=== PATIENT | male | born 1965 | race Two or more races ===

== ENCOUNTER → 2020-01-01 08:40 | Outpatient (BNVA) | payer OTHER, SELFPAY | PROVIDERS: PCP Pediatrics; Visit Provider Internal Medicine | DX: Z76.89 Persons encountering health services in other specified circumstances (principal) ==

== ENCOUNTER 2020-01-01 09:34 | Emergency (ER) | payer OTHER, SELFPAY ==
[2020-01-01 09:43] VITALS: BP 166/96; PULSE 82; RESP 17; TEMP 36.3; O2SAT 96; BMI 41.9
--- NOTE | 2020-01-01 09:54 | ED.LOWEXIN ---
HPI - Extremity Injury (Lower) General Chief Complaint: Extremity Injury, Lower Stated Complaint: rt leg pain Time Seen by Provider: 01/01/20 09:37 Source: patient Mode of arrival: wheelchair Limitations: no limitations History of Present Illness HPI Narrative: 54 y/o male presents with right LE pain after he misstepped down the stairs at work and fell. He missed the bottom stair, hear a large pop and felt excruciating pain after. He is unable to ambulate and report severe pain of his posterior ankle and lower calf. MD complaint: leg injury and ankle injury Injury: Right: ankle Type of Injury: other (unclear - s/p fall ) Place: work Severity: severe Severity scale (1-10): 10 Relieving factors: nothing Exacerbating factors: weight bearing, movement and palpation Context: fall and walking Associated symptoms: snap/pop sensation and unable to bear weight Other symptoms: none Related Data Previous Rx's Medication Instructions Recorded hydrocodone-acetaminophen [[place]] 1 tab PO Q6H PRN #14 tab 01/01/20 ibuprofen 600 mg PO Q8H PRN #30 tab 01/01/20 Allergies Allergy/AdvReac Type Severity Reaction Status Date / Time No Known Allergies Allergy Verified 01/01/20 09:46 Review of Systems Review of Systems: Constitutional: No Fever, No Chills Cardiovascular: No Chest Pain, No SOB, No Orthopnea Respiratory: No Cough, No Sputum, No Wheezing Musculoskeletal: + joint pain, + Myalgias Skin: No Skin Lesions, No rash Neuro: + Weakness, No Numbness, No Dizziness, No Headache Heme/Lymph: No Bruising, No Lymphadenopathy All other 10 point ROS are negative. [facility] Past Medical History Medical History (Updated 01/01/20 @ 10:32 by DORCAS Andrade) Myocardial infarction Social History Social History Advance Directives: No Advance Directives Information Provided: Yes Physical Exam Vital Signs: Vital Signs: Vital Signs Temp Pulse Resp BP Pulse Ox 01/01/20 09:43 97.4 F 82 17 166/96 H 96 Body Mass Index 41.9 Appearance: Alert. Oriented X3. No acute distress. HEENT: normal inspection Neck: Normal inspection. Respiratory: No respiratory distress. Skin: Skin warm and dry. Normal skin color. Normal skin turgor. No rashes. Extremities: RLE with palpable 1cm mass of Achielles tendon. +Byrd test. +weakness to foot plantar flexion and dorsiflexion. 2+ DP pulse. mild calf tenderness. no ecchymosis Neuro: Oriented X 3. No motor deficit. No sensory deficit. Course Course Course Narrative: exam is consistent with Achilles tendonopathy possible rupture, less likely ankle sprain or fracture. doubt DVT. slight plantarflexion is intact likely due to compensatory mechanism. will splint, advise non-weight bearing status and refer to Orthopedics for further evaluation. patient agrees with plan. Discharge Plan Discharge Clinical Impression: Achilles tendon tear Qualifiers: Encounter type: initial encounter Laterality: right Qualified Code(s): S86.011A - Strain of right Achilles tendon, initial encounter Patient Disposition: Home, Self-Care Instructions: Achilles Tendon Rupture (ED) Additional Instructions: Do NOT bear weight on affected leg. Follow up with Orthopedics ESE. Prescriptions: New ibuprofen 600 mg tablet 600 mg PO Q8H PRN (Reason: pain) Qty: 30 RF: 0 hydrocodone-acetaminophen [[place]] 5-325 mg tablet 1 tab PO Q6H PRN (Reason: pain) Qty: 14 RF: 0 Referrals: Mitul De La Garza MD [Physician] - 2 days (for suspected Achilles's tendon tear) Stand Alone Forms: Work/School Release
[2020-01-01] MEDS: oxyCODONE HCl Immed Release 5 MG TABLET PO (09:58)
[2020-01-01] MEDS: Ibuprofen 600 MG TABLET PO (09:59)
== END 2020-01-01 10:43 | disposition home or self-care (01) ==
PROVIDERS: Emergency Provider Emergency Medicine
DX: S86.011A Strain of right Achilles tendon, initial encounter (principal); W10.8XXA Fall (on) (from) other stairs and steps, initial encounter; I10 Essential (primary) hypertension; I25.2 Old myocardial infarction; Y93.9 Activity, unspecified; Y92.9 Unspecified place or not applicable; Y99.0 Civilian activity done for income or pay
CPT/HCPCS: 29515; 99202; 99283

== ENCOUNTER → 2020-01-03 11:13 | Outpatient (BNVA) | payer OTHER, SELFPAY | PROVIDERS: Visit Provider Physician Assistant | DX: S86.011A Strain of right Achilles tendon, initial encounter (principal) | CPT/HCPCS: 99203; 99204 ==

== ENCOUNTER 2020-01-08 07:54 | Day surgery (SDC) | payer OTHER, SELFPAY ==
--- NOTE | 2020-01-07 11:35 | P.CONAN_ITS ---
Documented by User: Ellen Mackay 01/07/20 15:32 HPI - Anesthesia Eval Consult details Narrative: 54yo M for R achilles repair [facility] Past Medical History Medical History Asthma HLD (hyperlipidemia) HTN (hypertension) Myocardial infarction Sleep apnea Surgical History Surgical History Hx of cardiac cath Social History Social History Advance Directives: No Advance Directives Information Provided: Yes Meds Allergies Allergy/AdvReac Type Severity Reaction Status Date / Time No Known Allergies Allergy Verified 01/03/20 11:16 Home Medications Medication Instructions Recorded Confirmed Type aspirin 325 mg tablet 325 mg PO DAILY 01/03/20 History trazodone 100 mg tablet 100 mg PO BEDTIME PRN 01/03/20 History Exam Exam Date and Time: January 07, 2020 1135 Narrative Narrative: Cardiac Cath 12/26/19: Chronic total occlusion of the RCA account for stress test abnormalities. Robust L to R collaterals present. Otherwise no significant CAD. Continue with med tx. Assessment and Plan Assessment Anesthesia Assessment: Chart Reviewed Documented by User: Kev Ramirez MD 01/08/20 09:13 [facility] Past Medical History Medical History Asthma HLD (hyperlipidemia) HTN (hypertension) Myocardial infarction Sleep apnea Surgical History Surgical History Hx of cardiac cath Social History Social History Advance Directives: No Advance Directives Information Provided: Yes Meds Allergies Allergy/AdvReac Type Severity Reaction Status Date / Time No Known Allergies Allergy Verified 01/03/20 11:16 Home Medications Medication Instructions Recorded Confirmed Type aspirin 325 mg tablet 325 mg PO DAILY 01/03/20 History trazodone 100 mg tablet 100 mg PO BEDTIME PRN 01/03/20 History
--- NOTE | 2020-01-08 | ECG_ITS ---
Test Reason : Chest pain Blood Pressure : / mmHG Vent. Rate : 071 BPM Atrial Rate : 071 BPM P-R Int : 182 ms QRS Dur : 102 ms QT Int : 368 ms P-R-T Axes : 045 -21 041 degrees QTc Int : 399 ms Normal sinus rhythm Inferior infarct , age undetermined Nonspecific T wave abnormality Lateral leads Abnormal ECG No previous ECGs available Referred By: Kev Ramirez Electronically Signed By:ANETA SR MD
[2020-01-08 08:58] VITALS: BMI 41.9
[2020-01-08 09:25] VITALS: BP 128/80; PULSE 69; RESP 20; TEMP 36.6; O2SAT 96
[2020-01-08] MEDS: ceFAZolin Sodium/Dextrose,Iso 2 GM/50 ML PIGGYBACK IV (09:27)
[2020-01-08] MEDS: Lactated Ringers 1,000 ML 100 ML IVCONT (09:28)
--- NOTE | 2020-01-08 12:56 | PC.NURSE ---
Surgery cancelled. Pt needs to follow up with cardiologists regarding episodes of chest pain
== END 2020-01-08 23:59 ==
PROVIDERS: Visit Provider Orthopaedic Surgery
DX: S86.011A Strain of right Achilles tendon, initial encounter (principal); Z53.09 Procedure and treatment not carried out because of other contraindication; W10.8XXA Fall (on) (from) other stairs and steps, initial encounter; Y93.01 Activity, walking, marching and hiking; Y92.69 Other specified industrial and construction area as the place of occurrence of the external cause; Y99.8 Other external cause status; I25.2 Old myocardial infarction; I10 Essential (primary) hypertension
CPT/HCPCS: 93005; J0690; J2250; J2405; J3010

== ENCOUNTER 2020-01-16 08:43 | Day surgery (SDC) | payer OTHER, SELFPAY ==
--- NOTE | 2020-01-15 12:49 | P.CONAN_ITS ---
Documented by User: Ellen Micheleney 01/15/20 13:00 HPI - Anesthesia Eval Consult details Narrative: 54yo M for R achilles tendon repair Cardiac cleared (Cx'd previously d/t active CP in preop. Sent for Cardiac clearance.) [facility] Past Medical History Medical History Asthma HLD (hyperlipidemia) HTN (hypertension) Myocardial infarction Sleep apnea Surgical History Surgical History Hx of cardiac cath Social History Social History Smoking Status: Former smoker Use of substances other than those prescribed or required for medical reasons: Yes Substance Use Type Other:: CBD DROPS 01/13/2020 LAST DOSE Advance Directives: No Meds Allergies Allergy/AdvReac Type Severity Reaction Status Date / Time No Known Allergies Allergy Verified 01/03/20 11:16 Home Medications Medication Instructions Recorded Confirmed Type aspirin 325 mg tablet 325 mg PO DAILY 01/03/20 History trazodone 100 mg tablet 100 mg PO BEDTIME PRN 01/03/20 History Asmanex HFA 01/15/20 History atorvastatin 1 tab PO DAILY 01/15/20 01/15/20 History isosorbide mononitrate 30 mg PO DAILY 01/15/20 01/15/20 History montelukast 1 tab PO DAILY 01/15/20 01/15/20 History omeprazole 1 tab PO DAILY PRN 01/15/20 01/15/20 History Exam Exam Date and Time: January 15, 2020 1249 Narrative Narrative: Cardiac Cath 12/26/19: Chronic total occlusion of the RCA account for stress test abnormalities. Robust L to R collaterals present. Otherwise no significant CAD. Continue with med tx. EKG 01/08/20: Normal sinus rhythm. Inferior infarct , age undetermined. Nonspecific T wave abnormality Lateral leads Documented by User: Kev Ramirez MD 01/16/20 12:42 [facility] Past Medical History Medical History Asthma HLD (hyperlipidemia) HTN (hypertension) Myocardial infarction Sleep apnea Surgical History Surgical History Hx of cardiac cath Social History Social History Smoking Status: Former smoker Use of substances other than those prescribed or required for medical reasons: Yes Substance Use Type Other:: CBD DROPS 01/13/2020 LAST DOSE Advance Directives: No Meds Allergies Allergy/AdvReac Type Severity Reaction Status Date / Time No Known Allergies Allergy Verified 01/03/20 11:16 Home Medications Medication Instructions Recorded Confirmed Type aspirin 325 mg tablet 325 mg PO DAILY 01/03/20 History trazodone 100 mg tablet 100 mg PO BEDTIME PRN 01/03/20 History Asmanex HFA 01/15/20 History atorvastatin 1 tab PO DAILY 01/15/20 01/15/20 History isosorbide mononitrate 30 mg PO DAILY 01/15/20 01/15/20 History montelukast 1 tab PO DAILY 01/15/20 01/15/20 History omeprazole 1 tab PO DAILY PRN 01/15/20 01/15/20 History Exam Airway Mallampati Class: III TM Dist: >3cm Neck ROM: Full Loose/Missing/Broken Teeth: No Heart: rrrr Lungs: nl Other: ao Assessment and Plan Assessment Anesthesia Assessment: Anesthesia Plan Discussed and Chart Reviewed Final Anesthetic Review NPO: Yes ASA Class: III Final Preanesthetic Review: No Changes in Pt Med Stat, Meds/Allgs Chart Reviewed and Consent Obtained/Reviewed Patient Risk: Intermediate Procedure Risk: Intermediate Anesthetic Plan Anesthetic Plan: GA and Regional Block Disposition: Standard PACU
[2020-01-16] VITALS (9 sets, daily range): BP systolic 128–165; BP diastolic 66–131; PULSE 64–75; RESP 16–20; TEMP 36.1–36.4; O2SAT 97–100; BMI 41.9
[2020-01-16] MEDS: Lactated Ringers 1,000 ML 100 ML IVCONT (10:13)
[2020-01-16] MEDS: Albuterol Sulfate (0.083%) 2.5 MG/3 ML VIAL.NEB INHALE (10:49)
--- NOTE | 2020-01-16 11:55 | MHC.SHP ---
Pre-Procedural Eval Section A The patient is an INPATIENT: No Changes since office visit: Yes Patient answered all questions; No Cold of Flu in the past 2 weeks, No New Medical Problems and No Changes in Medication The History & Physical has been completed within 30 days and I have reviewed it.: Yes Section B Chief Complaint: Achilles Rupture Allergies: Allergies Allergy/AdvReac Type Severity Reaction Status Date / Time No Known Allergies Allergy Verified 01/03/20 11:16 Plan Patient has been examined and remains a candidate for the planned procedure
[2020-01-16] MEDS: ceFAZolin Sodium/Dextrose,Iso 2 GM/50 ML PIGGYBACK IV (12:01)
--- NOTE | 2020-01-16 12:49 | FL_ITS ---
EXAMINATION: Intraoperative fluoroscopy CLINICAL INFORMATION: Right Achilles repair COMPARISON: None. TECHNIQUE: Intraoperative fluoroscopy was provided for use by Dr. De La Garza. A total of 1 image was saved to PACS. A radiologist was not present during imaging. Today's dictation is only for administrative purposes to document intraoperative fluoroscopic usage. TOTAL FLUOROSCOPIC TIME: 7.1 seconds FL/FL guidance in OR FINDINGS~\^^ Intraoperative fluoroscopy provided for use by Dr. De La Garza. Please see operative note for detailed findings.
--- NOTE | 2020-01-16 13:46 | PM.OP ---
Brief Operative Note Date of procedure: 01/16/20 Pre-op diagnosis: right achilles avulsion Post-op diagnosis: same Procedure: right achilles tendon repair Implants: marlo collagen patch and 4.5 suture anchor Surgeon: Mitul De La Garza MD Anesthesia: GETA Estimated blood loss (mL): 0 IV fluids (mL): 1,000 Pathology: none sent Condition: stable Disposition: PACU
--- NOTE | 2020-01-18 | OP_ITS ---
SURGEON: Mitul De La Garza MD INDICATIONS: This is a 54-year-old gentleman, who sustained an injury to his Achilles tendon on 01/01/2020. We tried to fix this sooner, but he had delayed because of cardiac reasons and finally he was cleared to undergo surgery and he was taken to the operating room to undergo Achilles tendon repair. PREOPERATIVE DIAGNOSIS: Right Achilles avulsion. POSTOPERATIVE DIAGNOSIS: Right Achilles avulsion. PROCEDURE PERFORMED: Right Achilles tendon repair. ESTIMATED BLOOD LOSS: None. COMPLICATIONS: None. ANESTHESIA: General endotracheal and local. ASSISTANTS: None. SPECIMENS: IMPLANTS: [place] collagen patch 20 x 22 mm and a 4.5 suture anchor double loaded. FLUIDS: 1 L. PROCEDURE IN DETAIL: The patient was brought to the operating room, placed in the prone position. All bony prominences were well padded and he was prepped and draped in standard sterile fashion. Time-out was called to identify proper site, proper procedure, proper surgeon. IV antibiotics per weight were administered. I began by making an incision approximately 8 cm long over the posterior aspect of the Achilles. This was medial to the Achilles. Sharp dissection was taken down through the skin and then Littler scissors were used to dissect down to the Achilles tendon. This was hematogenous and there was a bony avulsion piece that had retracted proximal. I was able to clear out this piece and identify the donor location at the tip of the calcaneus. This was over 2-week-old and so it was difficult to reapproximate 100% because it was extremely tight. Not only did he have an avulsion, but he had a high-grade partial tear at the tendinous area approximately 4 cm proximal to the bony insertion site, so I not could release anymore to stretch it out. So, I placed a 4.5 suture anchor into the calcaneus. This was attached to suture tape as well as a suture. I then drilled small holes through the bony avulsion fragment and placed each of these over into the fragment and then tied over the fragment in a horizontal mattress configuration. This was done while he was terminally plantar flexed and I was able to get the bony avulsion fragment within millimeters of its donor site. I then used a FiberWire to repair the high-grade partial tear more proximal and then placed a collagen patch over this site and approximated that with 3-0 Vicryl. I was happy with the repair. I then removed all instrumentation, irrigated copiously and closed with absorbable suture and skin glue and then astrid. The patient was placed in sterile dressing and splinted in terminal equinus. He was then extubated, brought to recovery room in stable condition. There were no known complications. Because this is 2 weeks out from avulsion, this was a difficult repair and I think we need to keep him in equinus for 2 weeks and slowly bring him to neutral over the next 6 weeks. MD GABI Zuniga/NICOLE / [id number]
== END 2020-01-16 15:55 | disposition home or self-care (01) ==
PROVIDERS: Visit Provider Orthopaedic Surgery
PROC: (CPT 27650; principal; 2020-01-16 10:50)
DX: S86.011A Strain of right Achilles tendon, initial encounter (principal); W10.8XXA Fall (on) (from) other stairs and steps, initial encounter; Y93.01 Activity, walking, marching and hiking; Y92.69 Other specified industrial and construction area as the place of occurrence of the external cause; Y99.8 Other external cause status; I25.10 Atherosclerotic heart disease of native coronary artery without angina pectoris; I10 Essential (primary) hypertension; I25.2 Old myocardial infarction; G47.30 Sleep apnea, unspecified; J45.909 Unspecified asthma, uncomplicated; E78.5 Hyperlipidemia, unspecified; Z87.891 Personal history of nicotine dependence; Z79.82 Long term (current) use of aspirin; Z79.899 Other long term (current) drug therapy
CPT/HCPCS: 27650; C1713; J0690; J1100; J2250; J2370; J3010

== ENCOUNTER → 2020-02-01 09:10 | Outpatient (BNVA) | payer OTHER, SELFPAY | PROVIDERS: Visit Provider Physician Assistant | DX: Z47.89 Encounter for other orthopedic aftercare (principal); Z48.02 Encounter for removal of sutures | CPT/HCPCS: 99212 ==

== ENCOUNTER → 2020-02-12 08:57 | Outpatient (BNVA) | payer OTHER, SELFPAY | PROVIDERS: Visit Provider Physician Assistant | DX: Z47.89 Encounter for other orthopedic aftercare (principal) | CPT/HCPCS: 99212 ==

== ENCOUNTER → 2020-02-28 10:35 | Outpatient (BNVA) | payer OTHER, SELFPAY | PROVIDERS: Visit Provider Orthopaedic Surgery | DX: Z47.89 Encounter for other orthopedic aftercare (principal); Z87.891 Personal history of nicotine dependence; Z98.890 Other specified postprocedural states | CPT/HCPCS: 99212 ==

== ENCOUNTER 2020-03-27 12:18 | Outpatient (REF) | payer OTHER, SELFPAY ==
[2020-03-27 14:21] LABS: Prothrombin Time 11.6 SEC (10.8-13.0)
[2020-03-27 14:23] LABS: MANUAL DIFF FLAG NO
[2020-03-27 14:33] LABS: Basophils Absolute Auto 0.1 X10*3/uL (0.0-0.2); Basophils Percent Auto 0.5 % (0-2); Eosinophils Absolute Auto 0.4 X10*3/uL (0.0-0.4); Eosinophils Percent Auto 4.1 % (0-4); Hematocrit 46.6 % (42-52); Hemoglobin 14.8 g/dl (14.0-18.0); Imm Gran Abs Auto 0.07 X10*3/uL (0.00-0.03); Imm Gran Pct Auto 0.7 % (0.0-0.4); Lymphocytes Absolute Auto 3.2 X10*3/uL (1.2-4.9); Lymphocytes Percent Auto 31.4 % (20-40); Mean Corpuscular HGB Conc 31.8 g/dl (31.0-36.0); Mean Corpuscular Hemoglobin 28.1 pg (27.0-33.0); Mean Corpuscular Volume 88.6 fL (80-98); Mean Platelet Volume 10.4 fL (9.4-12.4); Monocytes Absolute Auto 0.7 X10*3/uL (0.1-1.2); Monocytes Percent Auto 6.9 % (2-11); Neutrophils Absolute Auto 5.8 X10*3/uL (2.0-8.3); Neutrophils Percent Auto 56.4 % (45-73); Platelet Count 242 X10*3/uL (160-400); Red Blood Count 5.26 X10*6/uL (4.60-5.80); Red Cell Distribution Width 12.8 % (11.0-16.0); White Blood Count 10.2 X10*3/uL (4.8-10.8)
[2020-03-27 14:47] LABS: Alanine Aminotransferase 55 U/L (0-40); Albumin Level 4.2 g/dL (3.5-5.0); Alkaline Phosphatase 87 U/L (39-117); Aspartate Amino Transferase 35 U/L (5-37); Bilirubin Direct 0.4 mg/dL (0.0-0.5); Bilirubin Total 0.9 mg/dL (0.0-1.0); Total Protein 7.3 g/dL (6.5-8.0)
[2020-03-31 12:51] LABS: Alpha Fetoprotein 2.2 ng/mL (<6.1)
[2020-05-21 12:03] LABS: HCV Log PCR <1.18 NOT DETECTED; HepC Viral Load <15 NOT DETECTED
== END 2020-03-27 12:19 | disposition home or self-care (01) ==
LOC: HO.10HDL 12:18
PROVIDERS: Visit Provider Internal Medicine
DX: Z86.19 Personal history of other infectious and parasitic diseases (principal)
CPT/HCPCS: 36415; 80076; 82105; 85025; 85610; 87522

== ENCOUNTER 2020-04-02 10:00 | Outpatient (RCR) | payer OTHER, SELFPAY ==
--- NOTE | 2020-03-27 10:12 | MHC.PT.EP ---
[facility] [place] Office [place] Office [place] Office [address] Margaret Pan [address] [phone] F: [phone] F: [phone] F: [phone] F: [phone] Physical Therapy Plan of Care Date of Evaluation: 03/27/20 Date of Surgery: 01/16/20 Diagnosis: R Achilles tendon repair performed on 01/16/2020 Assessment: pt presents w/ Achilles tendon repair post-op status. 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 pt presents to physical therapy with pain, decreased range of motion, decreased strength, impaired functional mobility, impaired postural awareness, and gait deviations. pt is a good candidate for skilled PT due to age, potential remediation of impairments, typical disease/condition progression and prognosis, comorbidities, and motivation. pt would benefit from tailored strengthening and stretching exercise program, functional training, gait training, postural re-training, neuromuscular re-education, modalities as needed for pain, equipment safety demonstration. Frequency and Duration: The patient will be seen 2x/wk for 12 weeks Short Term Goals: pt will be I w/ HEP to promote self-managment of condition. pt will improve R ankle DF to neutral to remediate gait impairments on even ground w/ LRAD. pt will participate in 6MWT to determine cardiovascular and muscular endurance. 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 pt will ascend/descend 12 stairs w/ reciprocal pattern w/ LRAD. pt will report <1/10 R ankle pain w/ >2500' ambulation on even ground w/ LRAD to facilitate return to work. Treatment Plan: Modalities to reduce pain, spasms and effusion. Manual therapy to restore motion and function. Therapeutic exercise to improve strength and flexibility. Neuromuscular re-education for posture and balance. Therapeutic activities to return to functional activities of daily living. Electronically signed by: Laurence Franco PT, DPT Please sign and return to therapist. Thank you for your referral.
--- NOTE | 2020-04-04 09:54 | MHC.PT.DC ---
[facility] [place] Office [place] Office [place] Office [address] Margaret Pan [address] [facility] [phone] F: [phone] F: [phone] F: [phone] F: [phone] Physical Therapy Discharge Report Diagnosis: R Achilles tendon repair performed on 01/16/2020 Date of Surgery: 01/16/20 Date of Evaluation: 03/27/20 Date of Discharge: 04/04/20 Treatments to Date: 2 Cancellations to Date: 0 No Shows to Date: 0 Discharge Status: Patient Elected to Stop Discharge Summary: The patient called our office this morning to tell us his worker's compensation case requested he go to physical therapy at a different location. He is discharged from this physical therapy plan of care. Electronically signed by: Laurence Franco PT, DPT Please sign and return to therapist. Thank you for your referral.
== END 2020-04-04 09:55 | disposition other institution (70) ==
LOC: HO.PT 10:00
PROVIDERS: PCP Pediatrics; Visit Provider Orthopaedic Surgery
DX: Z98.890 Other specified postprocedural states (principal)
CPT/HCPCS: 97110; 97161

== ENCOUNTER → 2020-04-03 09:36 | Outpatient (BNVA) | payer OTHER, SELFPAY | PROVIDERS: PCP Pediatrics; Visit Provider Orthopaedic Surgery | DX: Z98.890 Other specified postprocedural states (principal) | CPT/HCPCS: 99212 ==

== ENCOUNTER 2020-04-08 08:40 | Outpatient (REF) | payer OTHER, SELFPAY ==
--- NOTE | 2020-04-08 | US_ITS ---
EXAMINATION: US ABDOMEN COMPLETE CLINICAL INFORMATION: Hepatitis C history. GERD. COMPARISON: Ultrasound abdomen 01/29/2013. TECHNIQUE: Real-time imaging of the abdominal viscera. FINDINGS: PANCREAS: Head and body of the pancreas are homogeneous in echotexture. The tail is obscured by overlying gas. ABDOMINAL AORTA: The proximal, mid, and distal segments are normal in caliber. INFERIOR VENA CAVA: Visualized portions are normal. LIVER: The liver is normal size and contour. There is increased echogenicity seen. There are areas of focal fatty sparing. There are small anechoic cyst right hepatic lobe measuring 0.9 x 0.9 x 1.0 cm. No additional focal hepatic lesion. There is no intrahepatic biliary duct dilatation seen. GALLBLADDER: There are multiple echogenic gallstones without wall thickening. No pericholecystic fluid collection. COMMON BILE DUCT: Normal in caliber measuring 0.5 cm in diameter. RIGHT KIDNEY: Normal. No hydronephrosis. No renal calculi or focal parenchymal lesions. The kidney measures 11.7 cm in maximum dimension. LEFT KIDNEY: There is an echogenic stone lower pole measuring 0.3 x 0.3 cm. No additional cyst stones seen. No hydronephrosis. No renal calculi or focal parenchymal lesions. The kidney measures 11.0 cm in maximum dimension. SPLEEN: Normal. The spleen measures 11.3 cm in maximum dimension. FREE FLUID: None. US/US abdomen complete IMPRESSION: Diffuse echogenic liver consistent with hepatic steatosis. There is focal fatty sparing and a small right hepatic lobe cyst. The cyst is stable to previous exam from 2013. Gallstones without wall thickening. Gallstones are new since 2013 ultrasound exam. Small nonobstructive echogenic stone lower pole left kidney. The cyst is new since the previous exam 2012.
== END 2020-04-08 08:41 | disposition home or self-care (01) ==
LOC: HO.US 08:40
PROVIDERS: Visit Provider Internal Medicine
DX: B17.10 Acute hepatitis C without hepatic coma (principal)
CPT/HCPCS: 76700

== ENCOUNTER 2020-04-11 10:19 | Day surgery (SDC) | payer OTHER, SELFPAY ==
[2020-04-07 12:03] VITALS: BMI 39.7
--- NOTE | 2020-04-08 13:31 | P.CONAN_ITS ---
Documented by User: Ellen Mackay 04/08/20 13:38 HPI - Anesthesia Eval Consult details Narrative: 54yo M for Upper Endoscopy s/p achilles repair 12/2019. Pt obtained cardiac clearance preop tendon surgery. [facility] Past Medical History Medical History Asthma CAD (coronary artery disease) GERD (gastroesophageal reflux disease) Hepatitis Hiatal hernia History of torsion of testis HLD (hyperlipidemia) HTN (hypertension) Myocardial infarction Sleep apnea Family History Family History Father No problems noted. Mother No problems noted. 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 Meds Allergies Allergy/AdvReac Type Severity Reaction Status Date / Time No Known Allergies Allergy Verified 04/03/20 09:41 Home Medications Medication Instructions Recorded Confirmed Type aspirin 325 mg tablet 325 mg PO DAILY 01/03/20 History trazodone 100 mg tablet 100 mg PO BEDTIME PRN 01/03/20 04/07/20 History Asmanex HFA 01/15/20 History atorvastatin 1 tab PO DAILY 01/15/20 04/07/20 History isosorbide mononitrate 30 mg PO DAILY 01/15/20 04/07/20 History montelukast 1 tab PO DAILY 01/15/20 04/07/20 History omeprazole 1 tab PO DAILY PRN 01/15/20 04/07/20 History albuterol sulfate 2 puff INHALATION Q6H PRN 04/07/20 04/07/20 History atenolol 0.5 tab PO DAILY 04/07/20 04/07/20 History buspirone 1 tab PO BID 04/07/20 04/07/20 History cetirizine 1 tab PO DAILY 04/07/20 04/07/20 History clonazepam 0.5 tab PO DAILY 04/07/20 04/07/20 History fluticasone propionate [Flovent 1 puff PO BID 04/07/20 04/07/20 History Diskus] Exam Exam Date and Time: April 08, 2020 1331 Height,Weight and Vital Signs: Height 5 ft 6.5 in Weight 113.398 kg Pertinent Lab Results Pertinent Lab Results: Laboratory Tests 03/27/20 12:18 WBC 10.2 Hgb 14.8 Hct 46.6 Plt Count 242 BMP 12/2019 WNL per cardiac note Narrative Narrative: EKG 01/08/2020 NSR Inferior infarct, age undetermined Nonspecific T wave abn, lateral leads Assessment and Plan Assessment Anesthesia Assessment: Chart Reviewed Documented by User: Michelle Lee 04/11/20 11:36 PMFSH Past Medical History Medical History Asthma CAD (coronary artery disease) GERD (gastroesophageal reflux disease) Hepatitis Hiatal hernia History of torsion of testis HLD (hyperlipidemia) HTN (hypertension) Myocardial infarction Sleep apnea Family History Family History Father No problems noted. Mother No problems noted. 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 Meds Allergies Allergy/AdvReac Type Severity Reaction Status Date / Time No Known Allergies Allergy Verified 04/03/20 09:41 Home Medications Medication Instructions Recorded Confirmed Type aspirin 325 mg tablet 325 mg PO DAILY 01/03/20 History trazodone 100 mg tablet 100 mg PO BEDTIME PRN 01/03/20 04/07/20 History Asmanex HFA 01/15/20 History atorvastatin 1 tab PO DAILY 01/15/20 04/07/20 History isosorbide mononitrate 30 mg PO DAILY 01/15/20 04/07/20 History montelukast 1 tab PO DAILY 01/15/20 04/07/20 History omeprazole 1 tab PO DAILY PRN 01/15/20 04/07/20 History albuterol sulfate 2 puff INHALATION Q6H PRN 04/07/20 04/07/20 History atenolol 0.5 tab PO DAILY 04/07/20 04/07/20 History buspirone 1 tab PO BID 04/07/20 04/07/20 History cetirizine 1 tab PO DAILY 04/07/20 04/07/20 History clonazepam 0.5 tab PO DAILY 04/07/20 04/07/20 History fluticasone propionate [Flovent 1 puff PO BID 04/07/20 04/07/20 History Diskus] Exam Height,Weight and Vital Signs: Vital Signs Temp Pulse Resp BP Pulse Ox 04/11/20 10:47 97.7 F 75 18 136/99 H 97 Airway Mallampati Class: III TM Dist: >3cm Neck ROM: Full (Short neck) Heart: RRR Lungs: CTAB Assessment and Plan Assessment Anesthesia Assessment: Anesthesia Plan Discussed and Chart Reviewed Final Anesthetic Review NPO: Yes ASA Class: III Final Preanesthetic Review: No Changes in Pt Med Stat, Meds/Allgs Chart Rev iewed, Consent Obtained/Reviewed and Anes Risks/Benef Reviewed Patient Risk: Intermediate Procedure Risk: Low Assessment/Block/Sedation in SS: Assess/Block/Sedation-SS Anesthetic Plan Anesthetic Plan: MAC: Disposition: Standard PACU
[2020-04-11 10:47] VITALS: BP 136/99; PULSE 75; RESP 18; TEMP 36.5; O2SAT 97
[2020-04-11] MEDS: Lactated Ringers 1,000 ML 100 ML IVCONT (11:10)
[2020-04-11 11:58] VITALS: BP 101/49; PULSE 76; RESP 20; TEMP 36.4; O2SAT 99
--- NOTE | 2020-04-11 12:03 | PM.OP ---
Brief Operative Note Date of Service: 04/11/20 Pre-op diagnosis: GERD, Abdominal pain LUQ Post-op diagnosis: other (Erosive gastritis, Hiatal hernia, GERD) Procedure: EGD with biopsies Surgeon: Roberto Escalante Anesthesia: MAC Estimated blood loss (mL): 3.0 Pathology: other (A. Gastric antrum B. EG Junction at 35cm) Condition: stable Disposition: PACU
[2020-04-11 12:13] VITALS: BP 128/81; PULSE 75; RESP 20; TEMP 36.4
--- NOTE | 2020-04-11 12:28 | OP_ITS ---
SURGEON: Roberto Escalante MD INDICATIONS: The patient presents for evaluation of abdominal pain and reflux. Full consent has been obtained from him for this, including risks of bleeding and perforation. PREOPERATIVE DIAGNOSIS: Abdominal pain and reflux. POSTOPERATIVE DIAGNOSIS: Abdominal pain and reflux, erosive gastritis, hiatal hernia, gastroesophageal reflux. PROCEDURE PERFORMED: Esophagogastroduodenoscopy with biopsies. ESTIMATED BLOOD LOSS: COMPLICATIONS: ANESTHESIA: Monitored anesthesia care. ASSISTANTS: SPECIMENS: DESCRIPTION OF PROCEDURE: The patient was placed in the left lateral decubitus position. The Olympus video gastroscope was passed in the posterior oropharynx and upper esophagus under direct vision. The scope was passed slowly to the distal esophagus. The gastroesophageal junction appeared at 35 cm. There was some slight irregularity but no evidence of esophagitis nor any definitive evidence of Mayo's mucosa. There were no varices. The scope was entered into the stomach. There was a small hiatal hernia. The hiatal hernia mucosa appeared normal. The scope was advanced to the pylorus and duodenum was cannulated to the descending portion. The duodenum including the bulb was carefully inspected. There was some mild duodenitis in the duodenal bulb, but no erosions or ulceration. The scope was withdrawn back into the stomach. The gastric antrum had changes consistent with erosive gastritis with scattered erosions, erythema, and edema. There was some friability. There was no ulceration or mass. There was good peristalsis. The scope was retroflexed visualizing the proximal stomach carefully, which appeared normal, without any sign of mass or ulceration. The scope was straightened. Biopsies were obtained from the gastric antrum. The scope was withdrawn back into the esophagus. Biopsies were obtained at the EG junction at 35 cm. Proximal to this, the esophageal mucosa appeared normal. The scope was withdrawn from the patient. He tolerated the procedure well and he was returned to the recovery area in stable condition. IMPRESSION: 1. Erosive gastritis. 2. Hiatal hernia. 3. Gastroesophageal reflux. PLAN: The results of biopsies will be checked. If Helicobacter pylori is present in the gastric biopsies, I would recommend treating that given these findings. He was given a prescription to start omeprazole 20 mg daily. He was advised to resume his aspirin today in regard to the underlying coronary artery disease, but was advised to avoid NSAIDs. He was advised to see me again in several months for a followup visit as well. Of note, we did review the recent finding of his gallstones on his abdominal ultrasound. However, he is asymptomatic in that regard at this point and I would simply observe those. However, if they begin causing symptoms, he would then need to see a surgeon. Other laboratories, including a hepatitis C viral load, were negative. This has been discussed with his . MD TEDDY Hernandez/NICOLE / [id number] [email or web address]
== END 2020-04-11 13:03 | disposition home or self-care (01) ==
PROVIDERS: Visit Provider Internal Medicine
PROC: 0DJ08ZZ Inspection of Upper Intestinal Tract, Via Natural or Artificial Opening Endoscopic (ICD-10-PCS; CPT 43235; principal; 2020-04-11 11:50)
DX: K21.9 Gastro-esophageal reflux disease without esophagitis (principal); K29.60 Other gastritis without bleeding; K44.9 Diaphragmatic hernia without obstruction or gangrene; K80.80 Other cholelithiasis without obstruction; I10 Essential (primary) hypertension; J45.909 Unspecified asthma, uncomplicated; Z86.19 Personal history of other infectious and parasitic diseases; Z87.891 Personal history of nicotine dependence; Z79.51 Long term (current) use of inhaled steroids; Z79.899 Other long term (current) drug therapy
CPT/HCPCS: 43239; 88305; 88342

== ENCOUNTER 2021-08-26 04:45 | Emergency (ER) | payer OTHER, SELFPAY ==
[2021-08-26 06:50] LABS: Appearance Urine CLEAR; Color Urine YELLOW; Glucose Urine UA NEG (NEG); Leukocyte Esterase Urine NEG (NEG); Nitrite Urine NEG (NEG); Urine Blood NEG (NEG); Urine Ketones NEG (NEG); Urine Protein NEG (NEG-TRACE)
[2021-08-26 10:30] LABS: Glucose, Whole Blood 129 mg/dL (60-115)
== END 2021-08-26 07:00 | disposition home or self-care (01) ==
PROVIDERS: Emergency Provider Emergency Medicine
DX: R09.82 Postnasal drip (principal); R35.0 Frequency of micturition; E11.9 Type 2 diabetes mellitus without complications
CPT/HCPCS: 81003; 82947; 99283

== ENCOUNTER 2022-05-19 04:58 | Emergency (ER) | payer OTHER, SELFPAY ==
--- NOTE | ~2022-05-19 | CT_ITS ---
EXAMINATION: CT ORBIT WITH CONTRAST CLINICAL INFORMATION: CT orbits. Periorbital pain and pressure. Question mass. COMPARISON: CT sinuses 12/20/2019. TECHNIQUE: Proposal Director images were obtained. CT imaging of the orbits was performed after the intravenous administration of 85 mL Omnipaque 350. Development was reformatted into multiplanar images at the acquisition workstation. This CT examination was performed using dose optimization techniques as appropriate, variously including the following: *Automated exposure control *Adjustment of mA and/or kV according to patient size (this includes techniques or standardized protocols for targeted exams where dose is matched to indication/reason for exam; i.e. extremities or head) *Use of iterative reconstruction technique DLP: 171 mGy-cm FINDINGS: Globes and extraocular muscles are symmetric. No abnormal retrobulbar mass or enhancement. Lamina papyracea and orbital floors are intact. Orbital apices are unremarkable. There is moderate circumferential mucosal thickening within the maxillary sinuses. The left primary maxillary sinus ostium is occluded. The right is patent. There is moderate mucosal thickening within the frontal sinuses. Both of the frontal recesses are occluded. There is moderate mucosal thickening within the ethmoid air cells and the sphenoid sinus. Both of the sphenoid sinus ostia are occluded. The nasal septum deviates to the left and there is a prominent leftward projecting nasal septal spur that contacts the medial surface of the left inferior nasal turbinate. Limited visualization of the intracranial anatomy reveals no abnormal finding. Specifically no midline shift or hydrocephalus. Mastoid air cells and middle ear cavities are well-aerated. Temporomandibular joints are grossly symmetric. CT/CT orbit BI w IV con IMPRESSION: There is moderate paranasal sinus disease. Nearly all of the major paranasal sinus drainage pathways are occluded. The nasal septum deviates to the left and there is a prominent leftward projecting nasal septal spur that contacts the medial surface of the left inferior nasal turbinate. Otherwise unremarkable examination of the orbits in that there is no abnormal retrobulbar mass or enhancement.
--- NOTE | ~2022-05-19 | XR_ITS ---
EXAMINATION: XR CHEST CLINICAL INFORMATION: Dyspnea. COMPARISON: None TECHNIQUE: 2 views of the chest were obtained. FINDINGS: No significant abnormality is noted involving the heart, lungs, mediastinum, bony thorax or soft tissues. XR/XR chest 2V IMPRESSION: No acute cardiopulmonary process.
[2022-05-19 05:25] VITALS: BP 171/95; PULSE 89; RESP 16; TEMP 36.4; O2SAT 97; BMI 40.2
[2022-05-19 07:00] VITALS: BP 150/90; PULSE 92; RESP 20; TEMP 36.4; O2SAT 98
[2022-05-19 07:39] VITALS: BP 155/81; PULSE 74; RESP 18; TEMP 36.6; O2SAT 97
--- NOTE | 2022-05-19 09:12 | ECG_ITS ---
Test Reason : TACHYCARDIA Blood Pressure : / mmHG Vent. Rate : 074 BPM Atrial Rate : 074 BPM P-R Int : 174 ms QRS Dur : 100 ms QT Int : 398 ms P-R-T Axes : 038 -27 055 degrees QTc Int : 441 ms Normal sinus rhythm Minimal voltage criteria for LVH, may be normal variant ( R in aVL ) Inferior infarct (cited on or before 08-JAN-2020) Abnormal ECG When compared with ECG of 08-JAN-2020 09:34, No significant change was found Referred By: Dae Yoon Electronically Signed By:MAICO EDWARDS MD
--- NOTE | 2022-05-19 09:18 | ED_ITS ---
HPI - General Adult General Chief complaint: General Medical Stated complaint: Sob Time Seen by Provider: 05/19/22 08:33 Source: patient and old records reviewed History of Present Illness HPI narrative: Patient complaining of pressure-like sensation in his head medial to his right eye. He states has been there for a few years and is getting worse. He saw [facility] Thro[facility] for similar symptoms 2 years ago but visit was nondiagnostic. He states they looked up his nose but he has never had imaging as far as he knows. He also has a history of coronary artery disease with a cardiac catheterization 2 years ago without stent placement. He states when he lays down at night he feels the symptoms more. He then gets very tachycardic and feels palpitations. He complains of occasional vision changes which she describes is seeing flashes of light when his symptoms are bad. They are much worse when he lays down at night. He underwent sleep studies a year ago but apparently nondiagnostic. No recent fevers or chills. He states when he blows his nose he gets long strings of some sort of tissue which expands when he lights it on fire. He does describe a history of panic disorder but states the symptoms are not consistent with his usual panic attacks. Although he does state that he is very worried about the symptoms and feels like they may kill him Related Data Home Medications Medication Instructions Recorded Confirmed aspirin 325 mg tablet 325 mg PO DAILY 01/03/20 trazodone 100 mg tablet 100 mg PO BEDTIME PRN Sleep 01/03/20 04/07/20 Asmanex HFA 01/15/20 atorvastatin 20 mg tablet 1 tab PO DAILY 01/15/20 04/07/20 isosorbide mononitrate 30 mg 30 mg PO DAILY 01/15/20 04/07/20 tablet,extended release 24 hr montelukast 10 mg tablet 1 tab PO DAILY 01/15/20 04/07/20 omeprazole 20 mg tablet,delayed 1 tab PO DAILY PRN Gastric Reflux 01/15/20 04/07/20 release albuterol sulfate 90 mcg/actuation 2 puff inhalation Q6H PRN 04/07/20 04/07/20 aerosol inhaler Bronchospasm atenolol 25 mg tablet 0.5 tab PO DAILY 04/07/20 04/07/20 buspirone 5 mg tablet 1 tab PO BID 04/07/20 04/07/20 cetirizine 10 mg tablet 1 tab PO DAILY 04/07/20 04/07/20 clonazepam 0.5 mg tablet 0.5 tab PO DAILY 04/07/20 04/07/20 fluticasone propionate 100 1 puff PO BID 04/07/20 04/07/20 mcg/actuation blister powder for inhalation (Flovent Diskus) Previous Rx's Medication Instructions Recorded ibuprofen 600 mg tablet 600 mg PO Q8H PRN pain #30 tabs 01/01/20 rt airselect, standard, large #1 ea 01/11/20 KNeeling scooter #1 ea 01/21/20 Percocet 5 mg-325 mg tablet 1 tab PO Q4H PRN pain 7 days #42 02/01/20 (oxycodone-acetaminophen) tabs leg brace (Ankle Brace) #1 ea 02/06/20 amoxicillin 500 mg tablet 1,000 mg PO Q12H #84 tabs 05/19/22 Allergies Allergy/AdvReac Type Severity Reaction Status Date / Time No Known Allergies Allergy Verified 04/03/20 09:41 Review of Systems Constitutional: Comments: No fevers or chills Eyes: Comments: Vision changes as described without specific double vision ENT: Comments: Symptoms as described Cardiovascular: Comments: Palpitations described as tachycardia type symptoms when he gets his facial symptoms. No specific chest pain Respiratory: Comments: Some dyspnea when he is symptomatic Gastrointestinal: Comments: No nausea or vomiting or abdominal pain Musculoskeletal: Comments: No musculoskeletal complaints Neurologic: Comments: No focal weakness PMFSH Past Medical History Medical History Asthma CAD (coronary artery disease) GERD (gastroesophageal reflux disease) Hepatitis Hiatal hernia History of torsion of testis HLD (hyperlipidemia) HTN (hypertension) Myocardial infarction Sleep apnea Surgical History H/O colonoscopy Hx of Achilles tendon repair (~01/16/20) Hx of cardiac cath Hx of rectal sphincterotomy Family History Family History Father No problems noted. Mother No problems noted. 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 Anxious but without acute distress HENMT Other: Nose midline without deformity or swelling. Extraocular muscles are intact. No obvious abnormality on that nasal speculum exam Eyes Other: Pupils equal round reactive to light. No obvious dysconjugate gaze Resp Other: And clear and equal bilaterally without wheezes rales or rhonchi Cardio Other: Regular rate rhythm without murmurs rubs or gallops GI Other: Soft nontender nondistended Skin Other: Warm pink and dry without rash Neuro Other: Nonfocal neuro exam. Ambulatory without difficulty Medications Administered Discontinued Medications Generic Name Dose Route Start Last Admin Trade Name Freq PRN Reason Stop Dose Admin Aspirin 325 mg 05/19/22 11:23 05/19/22 11:29 Aspirin Enteric Coated 325 Mg Tablet.Dr JAMES 05/19/22 11:24 325 mg ONCE ONE Administration Iohexol 100 ml 05/19/22 11:42 05/19/22 11:43 Iohexol 350 Mg/Ml 100 Ml Infus..Btl IV 05/19/22 11:43 85 ml ONCE ONE Administration Medical Decision Making Medical Decision Making MDM Narrative: Patient with masslike sensation and chronic thick nasal discharge. Sinusitis, craniofacial mass, abscess. Anxiety is certainly possible Palpitations with history of coronary artery disease. As patient has never had imaging that he is aware of and there is none in our records, we will do an IV contrast CT scan once his creatinine is return. In the meantime await lab work including troponin. EKG 09:27. Chest x-ray is normal 14:58. Troponins are mildly elevated at 106 and 98. EKG is unchanged compared old. Cardiology consulted via [facility] taxed. No concern for acute ACS given lack of symptoms currently. Stable for discharge home from cardiology standpoint CT scan shows diffuse sinusitis without mass or other significant abnormalities. This is likely causing all of his symptoms. Will start him on antibiotics for prolonged course. Follow-up with ear nose and throat as well as Cardiology as an outpatient. Lab Data 05/19/22 09:56 05/19/22 09:37 Labs: Lab Results 05/19/22 05/19/22 05/19/22 Range/Units 09:37 09:37 09:37 WBC (4.8-10.8) X10*3/uL RBC (4.60-5.80) X10*6/uL Hgb (14.0-18.0) g/dl Hct (42.0-52.0) % MCV (80.0-98.0) fL MCH (27.0-33.0) pg MCHC (31.0-36.0) g/dl RDW (11.0-16.0) % Plt Count (160-400) X10*3/uL MPV (9.4-12.4) fL Immature Gran % (Auto) (0.0-0.4) % Neut % (Auto) (45-73) % Lymph % (Auto) (20-40) % [place] % (Auto) (2-11) % Eos % (Auto) (0-4) % Baso % (Auto) (0-2) % Lymph # (Auto) (1.2-4.9) X10*3/uL [place] # (Auto) (0.1-1.2) X10*3/uL Eos # (Auto) (0.0-0.4) X10*3/uL Baso # (Auto) (0.0-0.2) X10*3/uL Abs Immat Gran (auto) (0.00-0.03) X10*3/uL Absolute Neuts (auto) (2.0-8.3) x10*3/uL Absolute Nucleated RBC (0.0-0.012) X10*3/uL Nucleated RBC % (auto) (0.0-0.2) /100WBC Sodium 142 (135-145) mmol/L Potassium 4.4 (3.3-5.1) mmol/L Chloride 107 (96-108) mmol/L Carbon Dioxide 25 (22-29) mmol/L Anion Gap 14 (12-20) BUN 16 (9-16) mg/dL Creatinine 0.91 (0.5-1.4) mg/dL Estim Creat Clear Calc 103.5 Estimated GFR > 60 Random Glucose 105 (60-115) mg/dL Calcium 9.6 (8.4-10.2) mg/dL Total Bilirubin 0.7 (0.0-1.0) mg/dL AST 34 (5-37) U/L ALT 51 H (0-40) U/L Alkaline Phosphatase 65 (39-117) U/L Troponin I High Sens 106.3 H* (<3.5-35.0) ng/L Total Protein 7.3 (6.5-8.0) g/dL Albumin 4.4 (3.5-5.0) g/dL TSH (0.32-4.0) uIU/mL COVID-19 ([facility]ILDA) Negative (Negative) COVID-19 Clin Com See Note 05/19/22 05/19/22 05/19/22 Range/Units 09:56 09:56 10:51 WBC 11.5 H (4.8-10.8) X10*3/uL RBC 5.68 (4.60-5.80) X10*6/uL Hgb 16.0 (14.0-18.0) g/dl Hct 49.1 (42.0-52.0) % MCV 86.4 (80.0-98.0) fL MCH 28.2 (27.0-33.0) pg MCHC 32.6 (31.0-36.0) g/dl RDW 13.2 (11.0-16.0) % Plt Count 238 (160-400) X10*3/uL MPV 9.8 (9.4-12.4) fL Immature Gran % (Auto) 0.4 (0.0-0.4) % Neut % (Auto) 71.9 (45-73) % Lymph % (Auto) 18.3 L (20-40) % [place] % (Auto) 5.5 (2-11) % Eos % (Auto) 3.4 (0-4) % Baso % (Auto) 0.5 (0-2) % Lymph # (Auto) 2.1 (1.2-4.9) X10*3/uL [place] # (Auto) 0.6 (0.1-1.2) X10*3/uL Eos # (Auto) 0.4 (0.0-0.4) X10*3/uL Baso # (Auto) 0.1 (0.0-0.2) X10*3/uL Abs Immat Gran (auto) 0.05 H (0.00-0.03) X10*3/uL Absolute Neuts (auto) 8.2 (2.0-8.3) x10*3/uL Absolute Nucleated RBC 0.000 (0.0-0.012) X10*3/uL Nucleated RBC % (auto) 0.0 (0.0-0.2) /100WBC Sodium (135-145) mmol/L Potassium (3.3-5.1) mmol/L Chloride (96-108) mmol/L Carbon Dioxide (22-29) mmol/L Anion Gap (12-20) BUN (9-16) mg/dL Creatinine (0.5-1.4) mg/dL Estim Creat Clear Calc Estimated GFR Random Glucose (60-115) mg/dL Calcium (8.4-10.2) mg/dL Total Bilirubin (0.0-1.0) mg/dL AST (5-37) U/L ALT (0-40) U/L Alkaline Phosphatase (39-117) U/L Troponin I High Sens 98.6 H (<3.5-35.0) ng/L Total Protein (6.5-8.0) g/dL Albumin (3.5-5.0) g/dL TSH 0.59 (0.32-4.0) uIU/mL COVID-19 ([facility]ILDA) (Negative) COVID-19 Clin Com Discharge Plan Discharge Clinical Impression: Sinusitis Patient Disposition: Home, Self-Care Instructions: Sinusitis (ED) Additional Instructions: Follow-up with cardiology and your nose and throat specialist as discussed. Amoxicillin as an antibiotic. Take it for 3 weeks Prescriptions: New amoxicillin 500 mg tablet 1,000 mg PO Q12H Qty: 84 0RF No Action (DME) KNeeling scooter See Rx Instructions .ROUTE .MEDSUPPLY Qty: 1 0RF Rx Instructions: As directed oxycodone-acetaminophen [Percocet] 5-325 mg tablet 1 tab PO Q4H PRN (Reason: pain) 7 Days Qty: 42 0RF ibuprofen 600 mg tablet 600 mg PO Q8H PRN (Reason: pain) Qty: 30 0RF Asmanex HFA atorvastatin 20 mg tablet 1 tab PO DAILY isosorbide mononitrate 30 mg Tablet Extended Release 24 Hr 30 mg PO DAILY montelukast 10 mg tablet 1 tab PO DAILY omeprazole 20 mg tablet,delayed release (DR/EC) 1 tab PO DAILY PRN (Reason: Gastric Reflux) buspirone 5 mg tablet 1 tab PO BID cetirizine 10 mg tablet 1 tab PO DAILY clonazepam 0.5 mg tablet 0.5 tab PO DAILY atenolol 25 mg tablet 0.5 tab PO DAILY Flovent Diskus 100 mcg/actuation blister with device 1 puff PO BID albuterol sulfate 90 mcg/actuation HFA aerosol inhaler 2 puff inhalation Q6H PRN (Reason: Bronchospasm) (DME) rt airselect, standard, large See Rx Instructions .ROUTE .MEDSUPPLY Qty: 1 0RF Rx Instructions: As directed (DME) Ankle Brace Misc See Rx Instructions .MEDSUPPLY Qty: 1 0RF Rx Instructions: Achilles wedge Referrals: Marlon Harrison MD [Physician] - Nilo Sauer MD [Physician] -
[2022-05-19 10:00] LABS: MANUAL DIFF FLAG NO
[2022-05-19 10:02] LABS: Basophils Absolute Auto 0.1 X10*3/uL (0.0-0.2); Basophils Percent Auto 0.5 % (0-2); Eosinophils Absolute Auto 0.4 X10*3/uL (0.0-0.4); Eosinophils Percent Auto 3.4 % (0-4); Hematocrit 49.1 % (42.0-52.0); Imm Gran Abs Auto 0.05 X10*3/uL (0.00-0.03); Imm Gran Pct Auto 0.4 % (0.0-0.4); Lymphocytes Absolute Auto 2.1 X10*3/uL (1.2-4.9); Lymphocytes Percent Auto 18.3 % (20-40); Mean Corpuscular HGB Conc 32.6 g/dl (31.0-36.0); Mean Corpuscular Hemoglobin 28.2 pg (27.0-33.0); Mean Corpuscular Volume 86.4 fL (80.0-98.0); Mean Platelet Volume 9.8 fL (9.4-12.4); Monocytes Absolute Auto 0.6 X10*3/uL (0.1-1.2); Monocytes Percent Auto 5.5 % (2-11); Neutrophils Absolute Auto 8.2 x10*3/uL (2.0-8.3); Neutrophils Percent Auto 71.9 % (45-73); Platelet Count 238 X10*3/uL (160-400); Red Blood Count 5.68 X10*6/uL (4.60-5.80); Red Cell Distribution Width 13.2 % (11.0-16.0); White Blood Count 11.5 X10*3/uL (4.8-10.8)
[2022-05-19 10:07] LABS: Alanine Aminotransferase 51 U/L (0-40); Albumin Level 4.4 g/dL (3.5-5.0); Alkaline Phosphatase 65 U/L (39-117); Anion Gap 14 (12-20); Aspartate Amino Transferase 34 U/L (5-37); Bilirubin Total 0.7 mg/dL (0.0-1.0); Blood Urea Nitrogen 16 mg/dL (9-16); Calcium 9.6 mg/dL (8.4-10.2); Carbon Dioxide 25 mmol/L (22-29); Chloride 107 mmol/L (96-108); Creatinine Clr Calc Pharmacy 103.5; Estimated Glomerular Filt Rate > 60; Glucose Random 105 mg/dL (60-115); Potassium 4.4 mmol/L (3.3-5.1); Sodium 142 mmol/L (135-145); Total Protein 7.3 g/dL (6.5-8.0)
[2022-05-19 10:10] LABS: COVID-19 Test Negative (Negative); IDNOW Serial# 16C4AD1C
[2022-05-19 10:36] LABS: TSH reflex Free T4 0.59 uIU/mL (0.32-4.0)
[2022-05-19 10:40] LABS: Troponin-I High Sensitivity 106.3 ng/L (<3.5-35.0)
[2022-05-19 11:25] LABS: Troponin-I High Sensitivity 98.6 ng/L (<3.5-35.0)
[2022-05-19] MEDS: Aspirin Enteric Coated 325 MG TABLET.DR PO (11:29)
[2022-05-19] MEDS: iohexoL 350 MG/ML 100 ML INFUS..BTL IV (11:43)
[2022-05-19 15:09] VITALS: BP 187/115; PULSE 76; RESP 18; O2SAT 97
== END 2022-05-19 15:12 | disposition home or self-care (01) ==
PROVIDERS: Emergency Provider Emergency Medicine; PCP Internal Medicine
DX: J32.9 Chronic sinusitis, unspecified (principal); Z20.822 Contact with and (suspected) exposure to COVID-19; I10 Essential (primary) hypertension; E78.5 Hyperlipidemia, unspecified; I25.2 Old myocardial infarction; Z79.02 Long term (current) use of antithrombotics/antiplatelets; Z79.899 Other long term (current) drug therapy
CPT/HCPCS: 36415; 70481; 71046; 80053; 84443; 84484; 85025; 87635; 93005; 99284; Q9967

== ENCOUNTER 2022-06-28 08:23 | Outpatient (REF) | payer OTHER, SELFPAY ==
[2022-06-28 08:43] LABS: MANUAL DIFF FLAG NO
[2022-06-28 08:46] LABS: Basophils Absolute Auto 0.1 X10*3/uL (0.0-0.2); Basophils Percent Auto 0.5 % (0-2); Eosinophils Absolute Auto 0.4 X10*3/uL (0.0-0.4); Hematocrit 46.9 % (42.0-52.0); Hemoglobin 15.2 g/dl (14.0-18.0); Imm Gran Abs Auto 0.07 X10*3/uL (0.00-0.03); Imm Gran Pct Auto 0.6 % (0.0-0.4); Lymphocytes Absolute Auto 1.9 X10*3/uL (1.2-4.9); Lymphocytes Percent Auto 17.9 % (20-40); Mean Corpuscular HGB Conc 32.4 g/dl (31.0-36.0); Mean Corpuscular Hemoglobin 28.5 pg (27.0-33.0); Mean Corpuscular Volume 87.8 fL (80.0-98.0); Mean Platelet Volume 9.8 fL (9.4-12.4); Monocytes Absolute Auto 0.8 X10*3/uL (0.1-1.2); Monocytes Percent Auto 7.4 % (2-11); Neutrophils Absolute Auto 7.5 x10*3/uL (2.0-8.3); Neutrophils Percent Auto 69.6 % (45-73); Platelet Count 226 X10*3/uL (160-400); Red Blood Count 5.34 X10*6/uL (4.60-5.80); Red Cell Distribution Width 13.4 % (11.0-16.0); White Blood Count 10.8 X10*3/uL (4.8-10.8)
[2022-06-28 09:18] LABS: Alanine Aminotransferase 48 U/L (0-40); Albumin Level 4.1 g/dL (3.5-5.0); Alkaline Phosphatase 72 U/L (39-117); Aspartate Amino Transferase 29 U/L (5-37); Bilirubin Direct 0.3 mg/dL (0.0-0.5); Bilirubin Total 0.9 mg/dL (0.0-1.0); Total Protein 6.8 g/dL (6.5-8.0)
[2022-06-30 20:24] LABS: HCV Log PCR <1.18 NOT DETECTED Log IU/mL (NOT DETECTED); HepC Viral Load <15 NOT DETECTED IU/mL (NOT DETECTED)
[2022-07-05 00:54] LABS: FIB-ALT 41 U/L (9-46); FIB-Alpha-2-Macroglobulin 295 mg/dL (106-279); FIB-Apolipoprotein A1 129 mg/dL (94-176); FIB-GGT 29 U/L (3-85); FIB-Haptoglobin 201 mg/dL (43-212); FIB-Total Bilirubin 0.6 mg/dL (0.2-1.2); Liver Fibrosis Score 0.44; Liver Fibrosis Stage F1-F2; Nec Inflam Act Grade A0-A1; Nec Inflam Act Score 0.26
== END 2022-06-28 08:24 | disposition home or self-care (01) ==
LOC: HO.LAB 08:23
PROVIDERS: Visit Provider Internal Medicine
DX: R10.12 Left upper quadrant pain (principal); Z86.19 Personal history of other infectious and parasitic diseases
CPT/HCPCS: 36415; 80076; 81596; 82105; 85025; 85610; 87522

== ENCOUNTER 2022-07-08 08:25 | Outpatient (REF) | payer OTHER, SELFPAY ==
--- NOTE | ~2022-07-08 | US_ITS ---
EXAMINATION: US COMPLETE ABDOMEN WITH LIVER ELASTOGRAPHY CLINICAL INFORMATION: COMPARISON: None available. TECHNIQUE: Real-time imaging of the abdominal viscera. Noninvasive ultrasound liver fibrosis assessment is performed using Vj ElastPQ point quantification shear wave elastography (2D-SWE) with a C5-2 MHz transducer. Multiple elastography samples are obtained. FINDINGS: PANCREAS: The visualized pancreatic head and body are normal in appearance. The remainder of the pancreas is obscured from visualization by the overlying bowel gas. ABDOMINAL AORTA: The proximal, middle, and distal aortic segments are normal in caliber. INFERIOR VENA CAVA: Visualized portions are normal. LIVER: Liver echotexture is increased probably representing fatty lesion. Liver contour and size are normal. There is a small 1.1 x 0.8 x 1.3 m cyst in the right lobe of the liver. There is a hypoechoic area adjacent to the gallbladder, characteristic location of focal fatty sparing. No other focal lesion or intrahepatic biliary duct dilatation. The right lobe measures 17 cm in length. The left lobe measures 10 cm in length. Portal flow is normal/hepatopedal Shear wave liver elastography median stiffness is 1.9 m/s (reference: normal median stiffness is 1.3 m/s or less). IQR/median stiffness to assess sampling precision is 0.01 (reference: good quality data set is IQR/median stiffness of 0.15 or less). GALLBLADDER: Gallstones in the gallbladder measuring 1.9 x 1.6 cm. The gallbladder is otherwise normal. COMMON BILE DUCT: Normal in caliber measuring 0.4 cm in diameter. RIGHT KIDNEY: 2 small peripelvic cysts measuring 1 cm. No hydronephrosis. No renal calculi or focal parenchymal lesions. The kidney measures 11 cm in maximum dimension. LEFT KIDNEY: Normal. No hydronephrosis. No renal calculi or focal parenchymal lesions. The kidney measures 11 cm in maximum dimension. SPLEEN: Normal. The spleen measures 11 cm in maximum dimension. FREE FLUID: None. US/US abdomen comp w elastography IMPRESSION: 1. Impression: Echogenic liver suggestive of fatty infiltration. Small cysts in the right lobe of the liver. Gallstones. Small right renal cysts. 2. Liver elastography: Adequate liver sampling. Suggestive of compensated advanced chronic liver disease but need further test for confirmation. REFERENCE: Society of Radiologists in Ultrasound Liver Stiffness Thresholds (2020): LIVER STIFFNESS THRESHOLDS: *Liver Stiffness equal or less than 1.3 m/s: High probability of being normal. *Liver Stiffness less than 1.7 m/s: In the absence of other known clinical signs, rules out compensated advanced chronic liver disease. *Liver Stiffness 1.7-2.1 m/s: Suggestive of compensated advanced chronic liver disease but need further test for confirmation. *Liver Stiffness over 2.1 m/s: Rules in compensated advanced chronic liver disease. *Liver Stiffness over 2.4 m/s: Suggestive of clinically significant portal hypertension. QUALITY OF DATA SET: *IQR/Median value equal or less than 0.15 implies a quality data set. *IQR/Median value over 0.15 implies a poor quality data set. SIGNIFICANT CHANGE FROM PRIOR EXAM: Significant change if liver stiffness measurement is 10% or greater from prior exam. OTHER CONSIDERATIONS: The stage of liver fibrosis may be overestimated in the setting of acute hepatitis, liver inflammation, elevated liver function tests, hepatic vascular congestion, obstructive cholestasis, non-fasting state, and infiltrative diseases such as amyloidosis and lymphoma. In some patients with NAFLD, the liver stiffness thresholds for compensated advanced chronic liver disease may be lower. In causes other than viral hepatitis and NAFLD, liver stiffness thresholds are not well established.
== END 2022-07-08 08:26 | disposition home or self-care (01) ==
LOC: HO.US 08:25
PROVIDERS: PCP Internal Medicine; Visit Provider Internal Medicine
DX: R10.12 Left upper quadrant pain (principal); Z86.19 Personal history of other infectious and parasitic diseases
CPT/HCPCS: 76705; 76981

== ENCOUNTER 2022-08-09 08:55 | Day surgery (SDC) | payer OTHER, SELFPAY ==
--- NOTE | 2022-08-06 10:47 | HO.ANESPROP2 ---
Documented by User: Ellen Mackay NP 08/06/22 11:08 HPI - Anesthesia Eval Consult details Narrative: 57yo M for Upper Endoscopy and Colonoscopy Pt with hx CAD, AR 2010 and 2015, cath 2019 without intervention, no stents. Last cardiology eval 2020 T/C to patient 08/06/22 - denies CP/SOB with walking ~ 2miles R side nasal polyp for last 3 years causes congestion PMFSH Active Problems Active Problems: All Active Problems (Updated 05/20/22 @ 00:00 by Shira Self) Achilles tendon rupture (Acute) S/P Achilles tendon repair (Acute) Past Medical History Medical History (Updated 08/06/22 @ 10:54 by Ellen Mackay NP) Asthma CAD (coronary artery disease) GERD (gastroesophageal reflux disease) Hepatitis Hiatal hernia History of torsion of testis HLD (hyperlipidemia) HTN (hypertension) Myocardial infarction Sleep apnea Family History Family History Father No problems noted. Mother No problems noted. Family history of problems with anesthesia: No Surgical History Surgical History (Updated 08/06/22 @ 10:54 by Ellen Mackay NP) H/O colonoscopy Hx of Achilles tendon repair (~01/16/20) Hx of cardiac cath Hx of rectal sphincterotomy History of Problems with Anesthesia: No Social History Social History Patient Tobacco Use Status: Never used Tobacco Second Hand Smoke Exposure: No Use of substances other than those prescribed or required for medical reasons: Yes Substance Use Frequency: Daily Are you DNR?: No Advance Directives: No Advance Directives Information Provided: Yes Advance Directives on File: No Current occupational status: employed 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 Meds Allergies Allergy/AdvReac Type Severity Reaction Status Date / Time No Known Allergies Allergy Verified 04/03/20 09:41 Home Medications Medication Instructions Recorded Confirmed Last Taken Type aspirin 325 mg tablet 325 mg PO DAILY 01/03/20 08/09/22 08/07/22 History trazodone 100 mg tablet 100 mg PO BEDTIME PRN Sleep 01/03/20 08/09/22 01/07/20 History Asmanex HFA 01/15/20 Unknown History atorvastatin 20 mg tablet 1 tab PO DAILY 01/15/20 08/09/22 Unknown History isosorbide mononitrate 30 mg 30 mg PO DAILY 01/15/20 08/09/22 Unknown History tablet,extended release 24 hr montelukast 10 mg tablet 1 tab PO DAILY 01/15/20 08/09/22 Unknown History omeprazole 20 mg tablet,delayed 1 tab PO DAILY PRN Gastric Reflux 01/15/20 08/09/22 Unknown History release albuterol sulfate 90 mcg/actuation 2 puff inhalation Q6H PRN 04/07/20 08/09/22 Unknown History aerosol inhaler Bronchospasm atenolol 25 mg tablet 0.5 tab PO DAILY 04/07/20 08/09/22 Unknown History buspirone 5 mg tablet 1 tab PO BID 04/07/20 08/09/22 Unknown History cetirizine 10 mg tablet 1 tab PO DAILY 04/07/20 08/09/22 Unknown History clonazepam 0.5 mg tablet 0.5 tab PO DAILY 04/07/20 08/09/22 08/09/22 History fluticasone propionate 100 1 puff PO BID 04/07/20 08/09/22 Unknown History mcg/actuation blister powder for inhalation (Flovent Diskus) Exam Exam Date and Time: August 06, 2022 1047 Pertinent Lab Results Pertinent Lab Results: Laboratory Tests 05/19/22 06/28/22 09:37 08:42 WBC 10.8 Hgb 15.2 Hct 46.9 Plt Count 226 Sodium 142 Potassium 4.4 Chloride 107 Carbon Dioxide 25 BUN 16 Creatinine 0.91 Narrative Narrative: EKG 05/2022 Vent. Rate : 074 BPM ? ? Atrial Rate : 074 BPM ?? P-R Int : 174 ms? QRS Dur : 100 ms ? ? QT Int : 398 ms ? ? ? P-R-T Axes : 038 -27 055 degrees ?? QTc Int : 441 ms ? Normal sinus rhythm Minimal voltage criteria for LVH, may be normal variant ( R in aVL ) Inferior infarct (cited on or before 08-JAN-2020) Abnormal ECG When compared with ECG of 08-JAN-2020 09:34, No significant change was found CT orbit BI w IV con 05/2022 IMPRESSION: There is moderate paranasal sinus disease. Nearly all of the major paranasal sinus drainage pathways are occluded. The nasal septum deviates to the left and there is a prominent leftward projecting nasal septal spur that contacts the medial surface of the left inferior nasal turbinate. Otherwise unremarkable examination of the orbits in that there is no abnormal retrobulbar mass or enhancement. US abdomen comp w elastography 06/2022 IMPRESSION: 1. Impression: Echogenic liver suggestive of fatty infiltration. Small cysts in the right lobe of the liver. Gallstones. Small right renal cysts. ? 2. Liver elastography:? Adequate liver sampling. Suggestive of compensated advanced chronic liver disease but need further test for confirmation. Assessment and Plan Assessment Anesthesia Assessment: Chart Reviewed Final Anesthetic Review Family History of Problems with Anesthesia: No History of Problems with Anesthesia: No Documented by User: Veronica Hull MD 08/09/22 11:12 [facility] Past Medical History Medical History (Updated 08/06/22 @ 10:54 by Ellen Mackay NP) Asthma CAD (coronary artery disease) GERD (gastroesophageal reflux disease) Hepatitis Hiatal hernia History of torsion of testis HLD (hyperlipidemia) HTN (hypertension) Myocardial infarction Sleep apnea Family History Family History Father No problems noted. Mother No problems noted. 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 Meds Allergies Allergy/AdvReac Type Severity Reaction Status Date / Time No Known Allergies Allergy Verified 01/14/21 09:41 Home Medications Medication Instructions Recorded Confirmed Last Taken Type aspirin 325 mg tablet 325 mg PO DAILY 01/03/20 08/09/22 08/07/22 History trazodone 100 mg tablet 100 mg PO BEDTIME PRN Sleep 01/03/20 08/09/22 01/07/20 History Asmanex HFA 01/15/20 Unknown History atorvastatin 20 mg tablet 1 tab PO DAILY 01/15/20 08/09/22 Unknown History isosorbide mononitrate 30 mg 30 mg PO DAILY 01/15/20 08/09/22 Unknown History tablet,extended release 24 hr montelukast 10 mg tablet 1 tab PO DAILY 01/15/20 08/09/22 Unknown History omeprazole 20 mg tablet,delayed 1 tab PO DAILY PRN Gastric Reflux 01/15/20 08/09/22 Unknown History release albuterol sulfate 90 mcg/actuation 2 puff inhalation Q6H PRN 04/07/20 08/09/22 Unknown History aerosol inhaler Bronchospasm atenolol 25 mg tablet 0.5 tab PO DAILY 04/07/20 08/09/22 Unknown History buspirone 5 mg tablet 1 tab PO BID 04/07/20 08/09/22 Unknown History cetirizine 10 mg tablet 1 tab PO DAILY 04/07/20 08/09/22 Unknown History clonazepam 0.5 mg tablet 0.5 tab PO DAILY 04/07/20 08/09/22 08/09/22 History fluticasone propionate 100 1 puff PO BID 04/07/20 08/09/22 Unknown History mcg/actuation blister powder for inhalation (Flovent Diskus) Exam Airway Mallampati Class: II TM Dist: >3cm Neck ROM: Full Loose/Missing/Broken Teeth: No Heart: rr Lungs: cta Assessment and Plan Assessment Anesthesia Assessment: Anesthesia Plan Discussed Final Anesthetic Review NPO: Yes ASA Class: II Final Preanesthetic Review: No Changes in Pt Med Stat, Meds/Allgs Chart Reviewed, Consent Obtained/Reviewed and Anes Risks/Benef Reviewed Patient Risk: Low Procedure Risk: Low Anesthetic Plan Anesthetic Plan: MAC: Disposition: Standard PACU
[2022-08-09 10:18] VITALS: BMI 36.6
[2022-08-09 10:29] VITALS: BP 151/90; PULSE 72; RESP 17; TEMP 36.1; O2SAT 97
[2022-08-09] MEDS: Lactated Ringers 1,000 ML 100 ML IVCONT (10:41)
[2022-08-09 11:50] VITALS: BP 97/57; PULSE 104; RESP 20; TEMP 36.4; O2SAT 92
--- NOTE | 2022-08-09 11:50 | P.BOP_ITS ---
Brief Operative Note Date of Service: 08/09/22 Pre-op diagnosis: GERD, LUQ pain, Screening Post-op diagnosis: other (Hiatal hernia, R/O Mayo's, Duodenitis, R/O H.pylori, Diverticulosis) Procedure: EGD with biopsies, Colonoscopy to the cecum and TI Surgeon: Roberto Escalante Anesthesia: MAC Was an [employer] used for this Procedure?: No Estimated blood loss (mL): 2.0 Pathology: other (A. Gastric antrum B. EG Junction at 35cm) Condition: stable Disposition: PACU
[2022-08-09 12:06] VITALS: BP 146/77; PULSE 83; RESP 20; TEMP 36.4; O2SAT 96
--- NOTE | 2022-08-09 13:28 | OP_ITS ---
DATE OF SERVICE: 08/09/2022 SURGEON: Rboerto Escalante MD INDICATIONS: The patient presents for evaluation of gastroesophageal reflux, left upper quadrant abdominal pain, and colorectal cancer screening. Full consent has been obtained from him for this, including risks of bleeding and perforation. PREOPERATIVE DIAGNOSIS: POSTOPERATIVE DIAGNOSIS: PROCEDURE PERFORMED: Esophagogastroduodenoscopy with biopsies, and colonoscopy to the cecum and terminal ileum. ESTIMATED BLOOD LOSS: COMPLICATIONS: ANESTHESIA: Monitored anesthesia care. ASSISTANTS: SPECIMENS: PREOPERATIVE DIAGNOSES: Left upper quadrant abdominal pain, gastroesophageal reflux, colorectal cancer screening. POSTOPERATIVE DIAGNOSES: Left upper quadrant abdominal pain, gastroesophageal reflux, colorectal cancer screening, small hiatal hernia, duodenitis, rule out Mayo's esophagus, diverticulosis, internal hemorrhoids. DESCRIPTION OF PROCEDURE: The patient was placed in the left lateral decubitus position. The Olympus video gastroscope was passed in the posterior oropharynx and upper esophagus under direct vision. The scope was passed slowly to the distal esophagus. The gastroesophageal junction appeared at 35 cm. The gastroesophageal junction appeared somewhat irregular with short, less than 1 cm segments of possible Mayo's mucosa. There was no esophagitis nor any lesions. The scope entered the stomach. There was a small hiatal hernia. The scope was advanced to the pylorus, and the duodenum was cannulated to the descending portion. The duodenum including the bulb was carefully inspected. There was some duodenitis in the duodenal bulb, but no ulceration nor mass. The scope was withdrawn back in the stomach. The gastric antrum and body appeared normal with good peristalsis. The scope was retroflexed visualizing the proximal stomach carefully, which appeared normal, without any sign of mass or ulceration. The scope was straightened. Biopsies were obtained from the gastric antrum. The scope was withdrawn back to the esophagus. Biopsies were obtained at the EG junction at 35 cm. Proximal to this, the esophageal mucosa appeared normal. The scope was withdrawn from the patient. He was turned around for colonoscopy. The digital rectal exam revealed no abnormalities. The Olympus video pediatric colonoscope was entered into the rectum and advanced easily to the cecum. Once in the cecum, I did identify normal-appearing cecal pouch with appendiceal orifice and a normal-appearing ileocecal valve. The terminal ileum was cannulated and appeared normal. The scope was withdrawn back in the colon. The entire cecum and ileocecal valve appeared normal. The scope was slowly withdrawn assessing all mucosal surfaces carefully. Preparation was excellent. I did not visualize any sign of polyps, colitis, nor angiodysplasia. There was a mild amount of sigmoid diverticulosis. In the rectum, scope was retroflexed visualizing internal hemorrhoids, but no other pathology. The rectal mucosa appeared normal. Scope was straightened and withdrawn the patient. He tolerated the procedure well, and was returned to the recovery area in stable condition. IMPRESSION: 1. Hiatal hernia, gastroesophageal reflux, rule out Mayo's esophagus. 2. Duodenitis. 3. Rule out Helicobacter pylori. 4. Diverticulosis. 5. Internal hemorrhoids. PLAN: The results of the biopsies will be checked. Given the negative colonoscopy, I would recommend a followup colonoscopy in 10 years for screening. If there is Mayo's esophagus without dysplasia, I would recommend a repeat upper endoscopy in 3 years. He will continue his current omeprazole 40 mg daily. He was advised to see me in 1 year for followup in regard to the previous history of hepatitis C. He will otherwise see me on a p.r.n. basis. He was advised to resume his aspirin tomorrow given his underlying history of coronary artery disease but was advised not to use any NSAIDs for least 1 week. This has been discussed with his . MD TEDDY Hernandez/NICOLE / [id number] MTDD
== END 2022-08-09 12:36 | disposition home or self-care (01) ==
PROVIDERS: PCP Internal Medicine; Visit Provider Internal Medicine
PROC: (CPT 45378; principal; 2022-08-09 11:40)
DX: Z12.11 Encounter for screening for malignant neoplasm of colon (principal); K57.30 Diverticulosis of large intestine without perforation or abscess without bleeding; K64.8 Other hemorrhoids; R10.12 Left upper quadrant pain; K21.9 Gastro-esophageal reflux disease without esophagitis; K22.70 Barrett's esophagus without dysplasia; K29.80 Duodenitis without bleeding; K44.9 Diaphragmatic hernia without obstruction or gangrene; I25.10 Atherosclerotic heart disease of native coronary artery without angina pectoris; I10 Essential (primary) hypertension; Z79.82 Long term (current) use of aspirin; Z79.899 Other long term (current) drug therapy; Z86.19 Personal history of other infectious and parasitic diseases
CPT/HCPCS: 45378; 43239; 88305; 88342

== ENCOUNTER 2023-09-09 08:19 | Outpatient (REF) | payer OTHER, SELFPAY ==
--- NOTE | ~2023-09-09 | US_ITS ---
EXAMINATION: US COMPLETE ABDOMEN WITH LIVER ELASTOGRAPHY CLINICAL INFORMATION: Hepatitis C. COMPARISON: None available. TECHNIQUE: Real-time imaging of the abdominal viscera. Noninvasive ultrasound liver fibrosis assessment is performed using Vj ElastPQ point quantification shear wave elastography (2D-SWE) with a C5-2 MHz transducer. Multiple elastography samples are obtained. FINDINGS: PANCREAS: Normal. The visualized pancreatic head and body are normal in appearance. The remainder of the pancreas is obscured from visualization by the overlying bowel gas. ABDOMINAL AORTA: The proximal, middle, and distal aortic segments are normal in caliber. INFERIOR VENA CAVA: Visualized portions are normal. LIVER: The liver demonstrates normal contour and echogenicity. No focal lesion or intrahepatic biliary duct dilatation. Within the right hepatic lobe, a 1.1 cm cyst is seen, with fine septation. The right lobe measures 17.2 cm in length. The left lobe measures 12.3 cm in length. Portal flow is Shear wave liver elastography median stiffness is 1.1 m/s (reference: normal median stiffness is 1.3 m/s or less). IQR/median stiffness to assess sampling precision is 0.17 (reference: good quality data set is IQR/median stiffness of 0.15 or less). GALLBLADDER: There is cholelithiasis. The gallbladder is physiologically distended without evidence of sludge, polyps, wall thickening or pericholecystic fluid. COMMON BILE DUCT: Normal in caliber measuring 0.5 cm in diameter. RIGHT KIDNEY: At the interpolar aspect, a 1.1 cm benign, simple cyst is seen. No hydronephrosis. No renal calculi or focal parenchymal lesions. The kidney measures 11.1 cm in maximum dimension. LEFT KIDNEY: At the lower pole, a 1.3 cm benign, simple cyst is seen. No hydronephrosis. No renal calculi or focal parenchymal lesions. The kidney measures 10.4 cm in maximum dimension. SPLEEN: Normal. The spleen measures 11.0 cm in maximum dimension. FREE FLUID: None. US/US abdomen comp w elastography IMPRESSION: 1. There is mild hepatomegaly. 2. Liver elastography: Although measurements suggest a high probability of normal liver stiffness, there is statistical variability of the sampling which decreases accuracy. When compared with prior exam, there is a statistically significant decrease in liver stiffness (decrease at least 10%). 3. There is cholelithiasis. REFERENCE: Society of Radiologists in Ultrasound Liver Stiffness Thresholds (2020): LIVER STIFFNESS THRESHOLDS: *Liver Stiffness equal or less than 1.3 m/s: High probability of being normal. *Liver Stiffness less than 1.7 m/s: In the absence of other known clinical signs, rules out compensated advanced chronic liver disease. *Liver Stiffness 1.7-2.1 m/s: Suggestive of compensated advanced chronic liver disease but need further test for confirmation. *Liver Stiffness over 2.1 m/s: Rules in compensated advanced chronic liver disease. *Liver Stiffness over 2.4 m/s: Suggestive of clinically significant portal hypertension. QUALITY OF DATA SET: *IQR/Median value equal or less than 0.15 implies a quality data set. *IQR/Median value over 0.15 implies a poor quality data set. SIGNIFICANT CHANGE FROM PRIOR EXAM: Significant change if liver stiffness measurement is 10% or greater from prior exam. OTHER CONSIDERATIONS: The stage of liver fibrosis may be overestimated in the setting of acute hepatitis, liver inflammation, elevated liver function tests, hepatic vascular congestion, obstructive cholestasis, non-fasting state, and infiltrative diseases such as amyloidosis and lymphoma. In some patients with NAFLD, the liver stiffness thresholds for compensated advanced chronic liver disease may be lower. In causes other than viral hepatitis and NAFLD, liver stiffness thresholds are not well established.
== END 2023-09-09 08:20 | disposition home or self-care (01) ==
LOC: HO.US 08:19
PROVIDERS: PCP Internal Medicine; Visit Provider Internal Medicine
DX: Z86.19 Personal history of other infectious and parasitic diseases (principal)
CPT/HCPCS: 76700; 76981

== ENCOUNTER 2024-08-16 09:41 | Outpatient (REF) | payer OTHER, SELFPAY ==
--- OUTSIDE RECORDS SUMMARY | 2024-08-16 10:01 | XMS_ITS | Clinical Summary ---
Author Organization [facility] Address [address] [place] [address] Care Team Providers Care Telecommunications Network Engineer Name Role Phone Unavailable Primary Care Provider Unavailabl e Social History Tobacco Use Types Packs/Day Years Used Date Smoking Tobacco: Never Assessed Sex and Gender Information Value Date Recorded Sex Assigned at Not on file Legal Sex Male 9:26 AM EDT Gender Identity Not on file Sexual Orientation Not on file Plan of Treatment Health Maintenance Due Date Last Done Comments Hepatitis C Virus Screening 1966 HIV Screening 1979 DTaP/Tdap/Td Vaccines (1 - Tdap) 1985 Hepatitis B Vaccines (1 of 3 - 19+ 3-dose series) 04/21 Pneumococcal Vaccines 50+ (1 of 1 - PCV) 2016 Zoster (Shingles) Vaccine (1 of 2) 2016 COVID-19 Vaccine ( - 2023- season) 2023
[2024-08-16 10:04] LABS: MANUAL DIFF FLAG NO
[2024-08-16 10:18] LABS: Basophils Absolute Auto 0.1 X10*3/uL (0.0-0.2); Basophils Percent Auto 0.8 % (0-2); Eosinophils Absolute Auto 0.6 X10*3/uL (0.0-0.4); Eosinophils Percent Auto 5.4 % (0-4); Hematocrit 46.5 % (42.0-52.0); Hemoglobin 15.2 g/dl (14.0-18.0); Imm Gran Abs Auto 0.07 X10*3/uL (0.00-0.03); Imm Gran Pct Auto 0.7 % (0.0-0.4); Lymphocytes Absolute Auto 2.6 X10*3/uL (1.2-4.9); Lymphocytes Percent Auto 24.7 % (20-40); Mean Corpuscular HGB Conc 32.7 g/dl (31.0-36.0); Mean Corpuscular Hemoglobin 28.7 pg (27.0-33.0); Mean Corpuscular Volume 87.9 fL (80.0-98.0); Mean Platelet Volume 9.5 fL (9.4-12.4); Monocytes Absolute Auto 0.9 X10*3/uL (0.1-1.2); Monocytes Percent Auto 8.2 % (2-11); Neutrophils Absolute Auto 6.3 x10*3/uL (2.0-8.3); Neutrophils Percent Auto 60.2 % (45-73); Platelet Count 207 X10*3/uL (160-400); Red Blood Count 5.29 X10*6/uL (4.60-5.80); Red Cell Distribution Width 13.1 % (11.0-16.0); White Blood Count 10.5 X10*3/uL (4.8-10.8)
[2024-08-16 10:35] LABS: INTERNATIONAL NORM RATIO 0.9 (0.9-1.1); Prothrombin Time 10.6 SEC (10.9-12.4)
[2024-08-16 10:43] LABS: Alanine Aminotransferase 60 U/L (0-40); Albumin Level 4.4 g/dL (3.5-5.0); Alkaline Phosphatase 68 U/L (39-117); Aspartate Amino Transferase 35 U/L (5-37); Bilirubin Direct 0.3 mg/dL (0.0-0.5); Bilirubin Total 0.6 mg/dL (0.0-1.0); Total Protein 7.4 g/dL (6.5-8.0)
[2024-08-17 10:14] LABS: Alpha Fetoprotein 2.5 ng/mL (<6.1)
[2024-08-18 13:59] LABS: HCV Log PCR <1.18 NOT DETECTED Log IU/mL (NOT DETECTED); HepC Viral Load <15 NOT DETECTED IU/mL (NOT DETECTED)
[2024-08-23 16:23] LABS: FIB-ALT 42 U/L (9-46); FIB-Alpha-2-Macroglobulin 328 mg/dL (106-279); FIB-Apolipoprotein A1 159 mg/dL (94-176); FIB-GGT 30 U/L (3-85); FIB-Haptoglobin 174 mg/dL (43-212); FIB-Total Bilirubin 0.4 mg/dL (0.2-1.2); Liver Fibrosis Score 0.37; Liver Fibrosis Stage F1-F2; Nec Inflam Act Grade A0-A1; Nec Inflam Act Score 0.25; Reference ID 5524319
== END 2024-08-16 09:42 | disposition home or self-care (01) ==
LOC: HO.LAB 09:41
PROVIDERS: PCP Internal Medicine; Visit Provider Internal Medicine
DX: Z86.19 Personal history of other infectious and parasitic diseases (principal)
CPT/HCPCS: 36415; 80076; 81596; 82105; 85025; 85610; 87522

== ENCOUNTER 2024-10-05 08:39 | Outpatient (REF) | payer OTHER, SELFPAY ==
--- NOTE | ~2024-10-05 | US_ITS ---
EXAMINATION: US ABDOMEN COMPLETE WITH LIVER ELASTOGRAPHY HISTORY: HISTORY OF HEP C TECHNIQUE: Real-time grayscale ultrasound imaging of the abdomen was performed and images were reviewed. COMPARISON: Comparison is made with the prior examination dated 09/09/2023. FINDINGS: Liver: The right lobe of the liver measures 13.0 cm in size. The left lobe of the liver measures 10.0 cm in size. The liver demonstrates increased echotexture, consistent with steatosis. There is a septated cyst in the right lobe measuring 10 x 10 x 13 mm. No intrahepatic biliary ductal dilatation is identified. There is normal hepatopedal flow in the portal vein. Ultrasound elastography of the liver was performed with 10 separate measurements of the liver parenchyma with the patient in the supine position. Measurements were obtained approximately 2 cm below Haseeb's capsule and perpendicular to the capsule. The median shear wave velocity is 1.17 m/s (previously 1.11 m/s). The interquartile range/median (IQR/median) is 0.15. Gallbladder and biliary tree: There is cholelithiasis. There is no wall thickening or pericholecystic fluid. There is no sonographic Obrien sign. The common bile duct is normal in caliber measuring 3 mm. Kidneys: The right kidney measures 11.6 cm in length and demonstrates interpolar cysts measuring 14 x 8 x 11 mm and 8 x 7 x 9 mm. The left kidney measures 10.3 cm in length and demonstrates a cyst at the lower pole measuring 17 x 11 x 14 mm with associated wall calcification. The kidneys are otherwise unremarkable, without evidence of solid masses, hydronephrosis, or calculi. Pancreas: The pancreatic head, neck, and body are unremarkable. The pancreatic tail is obscured by bowel gas. Spleen: The spleen is normal in size and contour, measuring 10.7 cm in length. Abdominal aorta and inferior vena cava: The visualized portions of the abdominal aorta and inferior vena cava are normal in caliber. There is no free fluid in the abdomen. US/US abdomen comp w elastography IMPRESSION: 1. Hepatic steatosis. 2. Cholelithiasis without evidence of acute cholecystitis. 3. Bilateral renal cysts as described. The median shear wave velocity in the liver is 1.15 m/s, corresponding to a median liver stiffness of 4.16 kPa. The IQR/median value is 0.15. This is indicative of a poor quality data set, and the estimated liver stiffness may be unreliable. Findings are indicative of a normal elastography value with a low likelihood of severe fibrosis or cirrhosis. REFERENCE: Society of [employer] in Ultrasound Liver Stiffness Thresholds (2020): LIVER STIFFNESS THRESHOLDS: *Shear wave velocity less than 1.3 m/s (Liver Stiffness equal or less than 5 kPa): High probability of being normal. *Shear wave velocity less than 1.7 m/s (Liver Stiffness less than 9 kPa): In the absence of other known clinical signs, rules out compensated advanced chronic liver disease. *Shear wave velocity between 1.7-2.1 m/s (Liver Stiffness 9-13 kPa): Suggestive of compensated advanced chronic liver disease but need further test for confirmation. *Shear wave velocity between 2.1-2.4 m/s (Liver Stiffness 13-17 kPa): Rules in compensated advanced chronic liver disease. *Shear wave velocity greater than 2.4 m/s (Liver Stiffness over 17 kPa): Suggestive of clinically significant portal hypertension. QUALITY OF DATA SET: *IQR/Median value equal or less than 0.15 implies a quality data set. *IQR/Median value over 0.15 implies a poor quality data set. SIGNIFICANT CHANGE FROM PRIOR EXAM: Significant change if liver stiffness measurement is 10% or greater from prior exam. OTHER CONSIDERATIONS: The stage of liver fibrosis may be overestimated in the setting of acute hepatitis, liver inflammation, elevated liver function tests, hepatic vascular congestion, obstructive cholestasis, non-fasting state, and infiltrative diseases such as amyloidosis and lymphoma. In some patients with NAFLD, the liver stiffness thresholds for compensated advanced chronic liver disease may be lower. In causes other than viral hepatitis and NAFLD, liver stiffness thresholds are not well established. Electronically signed by: Roberto Jesus MD 10/05/2024 09:32 AM EDT
--- OUTSIDE RECORDS SUMMARY | 2024-10-05 08:41 | XMS_ITS | Clinical Summary ---
Author Organization [facility] Address [address] [place] [address] Care Team Providers Care Medical Imaging Director Name Role Phone Unavailable Primary Care Provider [...]
--- OUTSIDE RECORDS SUMMARY | 2024-10-05 08:41 | XMS_ITS ---
Author Name [facility] Organization Unknown Care Team Organization Name Specialty Phone Email Start Date End [facility] 06/15/2023
--- OUTSIDE RECORDS SUMMARY | 2024-10-05 08:41 | XMS_ITS | Clinical Summary ---
Author Organization [address] [place] [address] [place] [id number] Phone Care Team Providers Care Lead Electrical Engineer Name Role Phone Chaz Sol MD Primary Care Provider [phone] Allergies No known active allergies Medications dulaglutide (Trulicity) 0.75 mg/0.5 mL pen injector injection Inject into the skin. Active clonazePAM (KlonoPIN) 0.5 mg tablet Take 1 Tablet by mouth 2 times daily as needed. Active aspirin 81 mg chewable tablet Take 1 tablet by mouth daily. Active traZODone (DESYREL) 50 mg tablet Take 1 tablet by mouth daily. Active atorvastatin (LIPITOR) 40 mg tablet TAKE 1 TABLET BY MOUTH EVERY DAY 30 tablet 5 05/16/19 25 Active nitroglycerin (NITROSTAT) 0.[address] 1 tablet (0.4 mg total) under the tongue every 5 (five) minutes if needed for chest pain. 25 tablet 3 09/14/19 25 Active carvediloL (COREG) 25 mg tablet Take 1 tablet (25 mg total) by mouth 2 (two) times a day with meals. 180 each 3 09/14/19 25 Active metoprolol succinate (TOPROL-XL) 25 mg 24 hr tablet Take 0.5 Tablets by mouth daily. 02/26/20 23 025 Discontinued(Si de effects) omeprazole (PriLOSEC) [address] capsule Take 1 Capsule by mouth daily. 025 Discontinued sucralfate (CARAFATE) 100 mg/mL suspension Take 10 mL by mouth 4 times daily. 025 Discontinued tamsulosin (FLOMAX) 0.4 mg 24 hr capsule Take 1 Capsule by mouth daily. Take 30 mins after same meal every day. 025 Discontinued nitroglycerin (NITROSTAT) 0.[address] 1 tab under tongue every 5 minutes x 3 doses if needed for chest pain. If no relief, call 911 12/07/19 025 Discontinued(Re order) Active Problems Problem Noted Date Diagnosed Date Myocardial infarct ([facility] V24, [facility] V28) Palpitation 02/22/2023 Assessment & Plan (02/27/2024 2:31 PM EST): Holter monitor showed no significant arrhythmia. He has not had recurrent symptom. Will continue current dose metoprolol. 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 Fatigue on BB therapy Last Assessment & Plan: He does not have chest discomfort. He has been reporting breathless, especially when he woke up in the morning. This could be related to untreated sleep apnea. But giving his coronary artery disease and moderate disease in the LAD, will repeat stress test to assess symptoms and perfusion. He also reportedly heart shaking/palpitation sensation with waking up in the morning. Doubt this is arrhythmia related. We will arrange Holter monitor. Echocardiogram 3 years ago showed normal left ventricular systolic function. We will update echo to reassess LV function with wall motion and right ventricular size and systolic function. I will start low-dose nitrate. Meantime, I will advise him to stay away from [employer] honey which contain Cialis. Also advised him to avoid alcohol. Assessment & Plan (09/13/2024 8:53 AM EDT): Patient has a history of coronary artery disease s/p inferior infarct. 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 He denies anginal symptoms. He stopped taking metoprolol previously due to sexual side effects. I have asked him to try carvedilol which has only a 1 to 3% reported sexual side effect profile and may be better tolerated. He is agreeable. He will also continue on aspirin and atorvastatin as prescribed. Echocardiogram ordered to reassess cardiac function and structures. For any chest pain/discomfort, especially if associated with exertion, that lasts longer than 10-15 minutes and does not resolve with rest or sublingual nitroglycerin, patient has been encouraged to seek immediate medical attention by calling 911. Assessment & Plan (02/27/2024 2:31 PM EST): Is known to have a occlusion of the proximal RCA. The most recent cardiac catheterization years ago showed chronic occluded proximal RCA and moderate LAD disease. The echocardiogram showed a basal inferior wall and basal inferolateral infarction. He is reasonably active and had no symptoms with physical activity. 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 Orders: ECG 12 lead Essential hypertension 07/22/2020 Overview (02/14/2024): Last Assessment & Plan: Patient's blood pressure is elevated, but he admits to not taking his medication at this morning. He is taking them every other day otherwise. Continue to follow his blood pressure. Can consider norvasc if his blood pressure remains robust at subsequent visits. Assessment & Plan (09/13/2024 8:54 AM EDT): Blood pressure is quite elevated in the office today at 170/94. He has not been taking metoprolol. He also admits to frequently eating takeout food which is higher in salt. New Rx for carvedilol sent to the pharmacy per above. He will contact the office if blood pressure is not improved as expected. Continue with efforts to follow a low fat, heart healthy diet, increase exercise and maintain a healthy weight to maximize risk reduction. Assessment & Plan (02/27/2024 2:31 PM EST): Well-controlled. Hyperlipidemia 07/22/2020 Overview (02/14/2024): Last Assessment & Plan: Well-controlled LDL. Continue statin at current dose. Assessment & Plan (09/13/2024 8:47 AM EDT): Last lipid panel reviewed and under excellent control with an LDL 64 which is at goal of <70. Continue atorvastatin as prescribed. Assessment & Plan (02/27/2024 2:31 PM EST): Well-controlled. Encounters Date Type Department Care Team Description 09/13/2024 8:10 AM EDT Office Visit [facility] [address] [place] [address] Gianna Watson NP Coronary artery disease involving unga coronary artery of unga heart without angina pectoris (Primary Dx); Essential hypertension; Hyperlipidemia, unspecified hyperlipidemia type from Last 3 Months Surgical History Surgery Date Site/Laterality Comments OTHER SURGICAL HISTORY 04/30/2019 PROCEDURE: HISTORY OTHER; COMMENT: colonoscopy Medical History Medical History Date Comments Anxiety DX:Anxiety Asthma DX:Asthma Benign essential HTN DX:Benign e ssential HTN Chronic sinusitis DX:Chronic sin usitis Insomnia DX:Insomnia Hepatitis C DX:Hepatitis C Onychomycosis DX:Onychomycosis MUMTAZ (obstructive sleep apnea) DX :MUMTAZ (obstructive sleep apnea) Diabetes mellitus, type 2 (C MS/HCC V24, CMS/HCC V28) DX:Diabetes mellitus, type 2 (HCC); COMMENT: uncontrolled Severe obesity (BMI 35.0-39. 9) with comorbidity (CMS/HCC V24, CMS/HCC V28) DX:Severe obesi ty (BMI 35.0-39.9) with comorbidity (HCC) Transaminitis DX:Transaminitis Allergic rhinitis DX:Allergic rh initis Family History Medical History Relation Name Comments Diabetes Father Relation Name Status Comments Father Mother Alive Social History Tobacco Use Types Packs/Day Years Used Date Smoking Tobacco: Former Smokeless Tobacco: Never Alcohol Use Standard Drinks/Week Comments Yes 0 (1 standard drink = 0.6 oz pur e alcohol) occasional Sex and Gender Information Value Date Recorded Sex Assigned at Not on file Legal Sex Male 12:52 PM EST Gender Identity Not on file Sexual Orientation Not on file Obstetrics History Last Filed Vital Signs Vital Sign Reading Time Taken Comments Blood Pressure 170/94 09/13/2024 8:00 AM EDT Pulse 70 09/13/2024 8:00 AM EDT Temperature - - Respiratory Rate - - Oxygen Saturation 97% 09/13/2024 8:00 AM EDT Inhaled Oxygen Concentration - - Weight 109 kg (240 lb) 09/13/2024 8:00 AM EDT Height 165.1 cm (5' 5 ) 09/13/2024 8:00 AM EDT Body Mass Index 39.94 09/13/2024 8:00 AM EDT Plan of Treatment Upcoming Encounters Date Type Department Care Team (Late st Contact Info) Description 12/27/2024 9:00 AM EDT Ancillary Procedure [facility] [address] [place] [address] Health Maintenance Due Date Last Done Comments Diabetes: Annual GFR (Glomerular Filtration Rate) 1966 Diabetes: Annual Foot Exam 1976 Diabetes: Annual Retina Eye Exam 1976 Hepatitis B Vaccines (1 of 3 - 19+ 3-dose series) 1985 Pneumococcal Vaccine: 50+ Years (1 of 2 - PCV) 1985 DTaP,Tdap,and Td Vaccines (3 - Td or Tdap) 09/07/2020 09/07/2010, 01/21/2005 Cholesterol Screening (Lipid Panel) 02/16/2022 Colorectal Cancer Screening: Colonoscopy 02/16/2022 Depression Screening 02/16/2022 HIV Screening 02/16/2022 Hepatitis C Screening 02/16/2022 Social Influencers of Health Screening 02/16/2022 Hypertension/CHF/CAD Annual BMP Blood Test 02/25/2022 COVID-19 Vaccine ( season) 2023 01/30/2022, 03/07/2021, 07/11/2020, Additional history exists Diabetes: Annual Urine Albumin-Creatinine Ratio (uACR) 02/24/2024 Diabetes: Blood Sugar Control Test (HGBA1C) 02/24/2024 Influenza Vaccine (#1) 2024 4, 02/07/2023, 01/26/2019, Additional history exists Hepatitis A Vaccines Completed 11/25/2009, 05/01/19 10 Zoster Vaccines Completed 01/20/2022, 11/14/2021 HIB Vaccines Aged Out No longer eligi ble based on patient's age to complete this topic HPV Vaccines Aged Out No longer eligi ble based on patient's age to complete this topic IPV Vaccines Aged Out No longer eligi ble based on patient's age to complete this topic MMR Vaccines Aged Out No longer eligi ble based on patient's age to complete this topic Meningococcal ACWY Vaccine Aged Out N o longer eligible based on patient's age to complete this topic Meningococcal B Vaccine Aged Out No l onger eligible based on patient's age to complete this topic RSV Immunization Patients Under 20 months Aged Out No longer eligible based on patient's age to complete this topic Varicella Vaccines Aged Out No longer eligible based on patient's age to complete this topic Procedures Procedure Name Priority Date/Time Associated Diagnosis Comments ECG 12-LEAD Routine 09/13/2024 9:07 AM EDT Coronary artery disease involving unga coronary artery of unga heart without angina pectoris from Last 3 Months Results * ECG 12 lead (09/13/2024 9:07 AM EDT) Ventricular Rate ECG 70 BPM GEMUSE Atrial Rate 70 BPM GEMUSE P-R Interval 170 ms GEMUSE QRS Duration 102 ms GEMUSE Q-T Interval 406 ms GEMUSE QTc 438 ms GEMUSE P Wave Burley 57 degrees GEMUSE R Burley -23 degrees GEMUSE T Burley 93 degrees GEMUSE ECG Interpretation Normal sinus rhythm Minimal voltage criteria for LVH, may be normal variant Inferior infarct (cited on or before 19-MAR-2011) T wave abnormality, consider anterolateral ischemia Abnormal ECG When compared with ECG of 27-FEB-2024 13:37, Criteria for Lateral infarct are no longer Present Confirmed by Massimo ROBLES YUFENG ([id number]) on 09/13/2024 9:13:04 AM GEMUSE 09/13/2024 8:06 AM EDT 09/13/2024 9:13 AM EDT us Gianna Watson [employer]IN[employer]ICE TEACHER ECG ORDERABLES Edited Result - Final GEMUSE from Last 3 Months Insurance [facility] [address] [place] [address] Care Teams Lead Electrical Engineer Relationship Specialty Start Date End Date Chaz Sol MD [facility] [address] [place] [address] PCP - General Internal Medicine 12/09/20
--- OUTSIDE RECORDS SUMMARY | 2024-10-05 08:42 | XMS_ITS | Data Portability ---
Author Organization [facility], Main Office Address [address] [facility] [address] [place] [phone] Care Team Providers Care Deicer Repairer Name Role Phone DARREN DESHPANDE Primary Care Provider CALEB HALL Channel Marketing Manager ZULEIMA CASTILLO Technology Consultant HOA SPENCER Psychiatrist Assessment No assessment recorded. Plan of Treatment Reminders Order Date Submit Date Provider Last Modified By Organization Details Last Modified Time Details Appointments None recorde d. Lab TSH, serum or plasma 2015 016 abolcun Not available 7 09:44:05 CBC w/ auto diff 2015 016 abolcun Not available 7 09:44:05 lipid panel, serum 2015 016 abolcun Not available 7 09:44:06 CMP, serum or plasma 2015 016 abolcun Not available 7 09:44:06 urinaly sis, complet e 2015 016 abolcun Not available 7 09:44:06 testost erone, free, serum 2015 016 abolcun Not available 7 09:44:06 CBC w/ auto diff 2015 016 PENELOPE Not available 6 20:49:07 TSH + T4, serum 2015 016 sabdulraheem Not available 6 13:43:02 Referral cardiol ogist referra l - For eval of pt with hisotyr of CAD, MUMTAZ and now palpita tions. 2015 016 [id number] Zuleima Castillo MD, [address], [address], [place], [address], 6 04:31:43 nutriti onist/d iepuja n referra l 2015 016 [id number] Not available 6 04:31:44 Procedures None recorde d. Surgeries None recorde d. Imaging holter monitor 2015 Berkley medrano In-Office Order, Internal Use Only DO Not Attach Compendium DO Not Attach Compendium, Do Not Delete/merge, [id number] 6 08:22:17 x-ray, chest, 2 view - SOB, palpita tions 2015 016 [facility], [address] [place], [address], 6 11:37:00 ultraso und, testicu lar - for eval of left testicu lar pain [facility] [address] [facility], [place], [address], 5 05:53:52 Medication Orders lisinop ril 5 mg tablet 2015 016 [email or web address] [id number] [facility], [address] [facility], [place], [address], 6 04:31:47 Patient Targets Encounter Date Encounter Id Patient Goals Patient Target Last Modified By Organization Details Last Modified Time 06/07/2014 [id number] halfway goal of Blood Pressure 140 / 90 Not available Not available Not available Exercise level Moderate Not available Not available Not available Tobacco Smoking Status Formerly Not available Not available Not available 06/07/2014 [id number] Pt advised and agrees to eat a low salt low fat diet; to do moderate exercise (such as walking) 150 minutes per week; to limit alcohol intake (goal of 2 drinks per day or less for men or 1 for woman). and to monitor dietary sodium. Will monitor home blood pressures and bring readings to appointments. 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 and to monitor dietary sodium. Will monitor home blood pressures and bring readings to appointments. Patient preferences and goals incorporated in plan and updated/modifi ed as needed to reflect progress toward goal. marcela Not available 12/01/2015 11:43:03 Patient Instructions Encounter Date Encounter Id Patient Instructions Last Modified By Organization Details Last Modified Time 06/07/2014 [id number] insomnia: care instructions awychowski Not available 06/17/2014 05:53:52 high blood pressure: care instructions awychowski Not available 06/17/2014 05:53:52 learning about high blood pressure awychowski Not available 06/17/2014 05:53:52 testicular pain: care instructions awychowski Not available 06/17/2014 05:53:52 Medications were reviewed at this visit and reconciled. Changes in the active medications are reflected in the current medication list and discussed with patient (or caregiver) with instructions for follow up as needed. Printed medication list provided to the patient as part of the visit summary. awychowski Not available 06/07/2014 15:24:45 04/16/2015 [id number] To call or return for worsening or concerns khariabet Not available 04/16/2015 16:00:14 Medications were reviewed at this visit and reconciled. Changes in the active medications are reflected in the current medication list and discussed with patient with instructions for follow up as needed. Printed medication list provided to the patient as part of the visit summary. I have reviewed the note and agree with the assessment and plan of care. marcela Not available 04/17/2015 08:22:17 12/01/2015 [id number] palpitations: care instructions ckrym Not available 12/09/2015 16:13:33 high cholesterol: care instructions ckrym Not available 12/09/2015 16:13:33 high blood pressure: care instructions ckrym Not available 12/09/2015 16:13:33 learning about high blood pressure ckrym Not available 12/09/2015 16:13:33 starting a weight loss plan: care instructions Not available 03/06/2016 04:31:44 Nutrition Referral and Weight Management Follow-up Information Not available 03/06/2016 04:31:44 Medications (OTC, herbal therapies, supplements) reviewed and reconciled with patient and or caregiver, including potential side effects, drug interactions, instructions, and the consequences of not taking medication. Reviewed potential barriers to medication adherence, such as side effects from medication or cost of medication. marcela Not available 12/01/2015 11:44:34 Reason for Referral Ceramics Test Engineer/dietitian Refer ral for Body mass index 30+ - obesity Referring Physician: Darren Deshpande, Family Medicine, Encounter Date: 12/01/2015 Technology Consultant Referral for Pa lpitations palpitations, f/u CAD For eval of pt with hisotyr of CAD, MUMTAZ and now palpitations. Referring Physician: Darren Deshpande Family Medicine, Encounter Date: 12/01/2015 Results Created Date Observation Date Name Description Value Unit Range Abnormal Flag Note LastModifiedBy Organization Detail LastModifiedTime 04/16/19 16 04/16/2015 humera r monit or Placement 6 4:15 Vin Not Available In-Office Order Internal Use Only DO Not Attach Compendium DO Not Attach Compendium, Do Not Delete/merge, [id number] 04/16/2015 16:00:15 04/16/19 16 04/16/2015 humera r monit or Removal 6 Charis Not Available In-Office Order Internal Use Only DO Not Attach Compendium DO Not Attach Compendium, Do Not Delete/merge, [id number] 04/16/2015 16:00:15 01/04/16/2015 humera r monit or Interpretati on Not Available In-Off ice Order Internal Use Only DO Not Attach Compendium DO Not Attach Compendium, Do Not Delete/merge, [id number] 04/16/2015 16:00:15 04/21/1904/21/2015 CBC w/ auto diff WBC 11.2 K/mm3 (4.0-1 1.0) high Not Available [facility] (Centralized Electronic Ordering - All Locations) Patient Can Go To The Location Of Their Choice, 04/21/2015 20:49:07 04/21/1904/21/2015 CBC w/ auto diff RBC 5.12 M/mm3 (4.70- 6.10) Not Available [facility] (Centralized Electronic Ordering - All Locations) Patient Can Go To The Location Of Their Choice, 04/21/2015 20:49:07 04/21/1904/21/2015 CBC w/ auto diff HGB 14.4 gm/dL (14.0- 18.0) Not Available [facility] (Centralized Electronic Ordering - All Locations) Patient Can Go To The Location Of Their Choice, 04/21/2015 20:49:07 04/21/1904/21/2015 CBC w/ auto diff HCT 46.8 % (42.0- 52.0) Not Available [facility] (Centralized Electronic Ordering - All Locations) Patient Can Go To The Location Of Their Choice, 04/21/2015 20:49:07 04/21/1904/21/2015 CBC w/ auto diff MCV 91.4 fL (80.0- 94.0) Not Available [facility] (Centralized Electronic Ordering - All Locations) Patient Can Go To The Location Of Their Choice, 04/21/2015 20:49:07 04/21/1904/21/2015 CBC w/ auto diff MCH 28.1 pg (27.0- 34.0) Not Available [facility] (Centralized Electronic Ordering - All Locations) Patient Can Go To The Location Of Their Choice, 04/21/2015 20:49:07 04/21/1904/21/2015 CBC w/ auto diff MCHC 30.8 % (33.0- 37.0) low Not Available [facility] (Centralized Electronic Ordering - All Locations) Patient Can Go To The Location Of Their Choice, 04/21/2015 20:49:07 04/21/1904/21/2015 CBC w/ auto diff plt 303 K/mm3 (150-4 60) Not Available [facility] (Centralized Electronic Ordering - All Locations) Patient Can Go To The Location Of Their Choice, 04/21/2015 20:49:07 04/21/1904/21/2015 CBC w/ auto diff RDW-SD 42.0 fL (<47.0 ) Not Available [facility] (Centralized Electronic Ordering - All Locations) Patient Can Go To The Location Of Their Choice, 04/21/2015 20:49:07 04/21/1904/21/2015 CBC w/ auto diff MPV 10.1 fL (9.4-1 2.4) Not Available [facility] (Centralized Electronic Ordering - All Locations) Patient Can Go To The Location Of Their Choice, 04/21/2015 20:49:07 04/21/1904/21/2015 CBC w/ auto diff automated NRBC 0.0 #/100 _WBC' s Not Available [facility] (Centralized Electronic Ordering - All Locations) Patient Can Go To The Location Of Their Choice, 04/21/2015 20:49:07 04/21/1904/21/2015 CBC w/ auto diff abs. NRBC 0.0 K/mm3 Not Available [facility] (Centralized Electronic Ordering - All Locations) Patient Can Go To The Location Of Their Choice, 04/21/2015 20:49:07 04/21/1904/21/2015 CBC w/ auto diff neut # 7.0 K/mm3 (1.3-7 .0) Not Available [facility] (Centralized Electronic Ordering - All Locations) Patient Can Go To The Location Of Their Choice, 04/21/2015 20:49:07 04/21/1904/21/2015 CBC w/ auto diff lymph # 3.1 K/mm3 (0.8-3 .1) Not Available [facility] (Centralized Electronic Ordering - All Locations) Patient Can Go To The Location Of Their Choice, 04/21/2015 20:49:07 04/21/1904/21/2015 CBC w/ auto diff mono# 0.9 K/mm3 (0.4-1 .3) Not Available [facility] (Centralized Electronic Ordering - All Locations) Patient Can Go To The Location Of Their Choice, 04/21/2015 20:49:07 04/21/1904/21/2015 CBC w/ auto diff eo # 0.3 K/mm3 (0.0-0 .4) Not Available [facility] (Centralized Electronic Ordering - All Locations) Patient Can Go To The Location Of Their Choice, 04/21/2015 20:49:07 04/21/1904/21/2015 CBC w/ auto diff baso # 0.0 K/mm3 (0.0-0 .1) Not Available [facility] (Centralized Electronic Ordering - All Locations) Patient Can Go To The Location Of Their Choice, 04/21/2015 20:49:07 04/21/1904/21/2015 CBC w/ auto diff abs. imm gran 0.1 K/mm3 Not Available [facility] (Centralized Electronic Ordering - All Locations) Patient Can Go To The Location Of Their Choice, 04/21/2015 20:49:04/21/1904/21/2015 CBC w/ auto diff neut 61.2 % (44-76 ) Not Available [facility] (Centralized Electronic Ordering - All Locations) Patient Can Go To The Location Of Their Choice, 04/21/2015 20:49:07 04/21/1904/21/2015 CBC w/ auto diff lymph 27.3 % (15-43 ) Not Available [facility] (Centralized Electronic Ordering - All Locations) Patient Can Go To The Location Of Their Choice, 04/21/2015 20:49:07 04/21/1904/21/2015 CBC w/ auto diff monocyte 8.0 % (4.5-1 0.5) Not Available [facility] (Centralized Electronic Ordering - All Locations) Patient Can Go To The Location Of Their Choice, 04/21/2015 20:49:07 04/21/1904/21/2015 CBC w/ auto diff eo 2.5 % (0-6) Not Available [facility] (Centralized Electronic Ordering - All Locations) Patient Can Go To The Location Of Their Choice, 04/21/2015 20:49:07 04/21/1904/21/2015 CBC w/ auto diff baso 0.4 % (0-2) Not Available [facility] (Centralized Electronic Ordering - All Locations) Patient Can Go To The Location Of Their Choice, [id number] 04/21/2015 20:49:07 04/21/19 16 04/21/2015 CBC w/ auto diff imm gran 0.6 % (0.0-0 .6) Not Available [facility] (Centralized Electronic Ordering - All Locations) Patient Can Go To The Location Of Their Choice, 04/21/2015 20:49:07 04/21/19 16 04/21/2015 TSH, serum or plasm a TSH 0.76 mIU/m L (0.40- 4.00) Not Available [facility] (Centralized Electronic Ordering - All Locations) Patient Can Go To The Location Of Their Choice, 04/21/2015 21:35:08 04/21/19 16 04/21/2015 T4, total , serum total T4 7.5 ug/dL (4.5-1 2.6) Not Available [facility] (Centralized Electronic Ordering - All Locations) Patient Can Go To The Location Of Their Choice, [id number] 04/21/2015 21:35:09 07/03/19 15 05/03/2011 imagi ng/di agnos tic resul t No observ ation record ed. marcela Not Available 07/03 12:57:58 04/21/19 16 humera r monit or No observ ation record ed. BARCODE In-Office Order Internal Use Only DO Not Attach Compendium DO Not Attach Compendium, Do Not Delete/merge, [id number] 04/21/2015 15:13:44 02/20/20 16 XR, chest , 2 view No observ ation record ed. [facility] [address] [place] [address], [address], 03/01/2016 07:38:44 02/21/20 16 02/21/2016 CT, sinus es, w/o contr ast No observ ation record ed. [facility] [address] [place] [address], [address], 03/01/2016 07:40:35 02/23/20 16 02/18/2016 humera r monit or No observ ation record ed. [facility] [address], [place], [address], 03/01/2016 07:41:10 06/27/19 19 06/26/2018 XR, chest , 2 view No observ ation record ed. [facility] [address] [place], [address], 06/28/2018 10:23:09 06/28/19 19 06/27/2018 nucle ar stres s test No observ ation record ed. [facility] [address] [place], [address], 06/28/2018 10:25:11 Result Notes None recorded. Problems Name Problem SNOMED Code Status Onset Date Resolution Date Notes Provider Name and Address Organization Details Recorded Time Injury of back Completed 12/01/2015 Darren Deshpande MD [address] [facility] [address], [place], [address], [facility] 6 11:21:17 Noninfec tious gastroen teritis 53739902 Completed 12/01/2015 DATE: 04/30/19 14; ; HALL Darren Deshpande MD [address], [place], [address], [facility] 6 11:20:11 Essentia l hyperten bran 22741362 Active Darren Deshpande MD [address], [place], [address], [facility] 6 16:29:14 Pain in testicle 99802169 Active Darren Deshpande MD [address], [place], [address], [facility] 6 16:29:14 Palpitat ions 54194242 Active Darren Deshpande MD [address] [facility] [address], [place], [address], [facility] 6 16:29:14 Cellulit is and abscess of upper arm 140132692 Completed 12/01/2015 Removal Reason: resolved Darren Deshpande MD [address], [place], [address], [facility] 6 11:21:05 Anxiety state 951340181 Active Darren Deshpande MD [address], [place], [address], [facility] 6 16:29:14 Bipolar disorder 06487101 Active IMPRESSI ON: FOLLOWED BY DR SPENCER. PER PT ONLY ON GABAPENT IN Darren Deshpande MD [address], [place], [address], [facility] 6 16:29:14 Depressi ve disorder 85579101 Active Darren Deshpande MD [address], [place], [address], [facility] 6 16:29:14 Heart disease 85054291 Active Darren Deshpande MD [address], [place], [address], [facility] 6 16:29:14 Viral hepatiti s C 43372372 Completed 12/01/2015 STORY: S/P INTERFER ON/ABDULKADIR MILLS ; Removal Reason: s/p treatmen t Darren Deshpande MD [address], [place], [address], [facility] 6 11:20:33 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 3658252 Active Darren Deshpande MD [address], [place], [address], [facility] 6 16:29:14 Pure hypercho lesterol emia 084766648 Active Darren Deshpande MD [address], [place], [address], [facility] 6 16:29:14 Insomnia 233356656 Active Darren Deshpande MD [address], [place], [address], [facility] 6 16:29:14 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 642811533 Completed 12/01/2015 RIGHT FOREARM Removal Reason: resolved Darren Deshpande MD [address], [place], [address], [facility] 6 11:20:51 Acute myocardi al infarcti on 93332572 Completed 02/15/2016 Darren Deshpande MD [address], [place], [address], [facility] 6 12:44:39 Obesity 270278883 Active Darren Deshpande MD [address], [place], [address], [facility] 6 16:29:14 Obstruct galindo sleep apnea syndrome 56451422 Active Darren Deshpande MD [address], [place], [address], [facility] 6 16:29:14 Pain of multiple joints 53427139 Active Darren Deshpande MD [address], [place], [address], [facility] 6 16:29:14 Psychose xual dysfunct ion 792023855 Active Darren Deshpande MD [address], [place], [address], [facility] 6 16:29:14 Vitamin D deficien cy 96739472 Active Darren Deshpande MD [address], [place], [address], [facility] 6 16:29:14 Cough 03266649 Completed 201110/29/2013 IMPRESSI ON: BASED ON HISTORY AND EXAM I SUSPECT ALLERGIE S VS GERD VS ASTHMA/C OPD WITH MUMTAZ INTERPLA Y WELL. WILL SEE IF THIS REGIMEN HELPS THEN PEEL MEDS AWAY TO ISOLATE WHICH SPECIFIC ALLY MADE A DIFFEREN CE. WILL LIKELY NEED PULM EVAL FOR IF NOT THIS MUMTAZ F/U.; RECORDED 02/09/20 12 3:07PM BY ELENA FORREST MA, ANNOTATI ON/JONAH Deshpande MD [address] [facility] [address], [place], [address], [facility] 6 16:29:14 Cough 04540469 Completed 201110/02/2013 IMPRESSI ON: BASED ON HISTORY AND EXAM I SUSPECT ALLERGIE S VS GERD VS ASTHMA/C OPD WITH MUMTAZ INTERPLA Y WELL. WILL SEE IF THIS REGIMEN HELPS THEN PEEL MEDS AWAY TO ISOLATE WHICH SPECIFIC ALLY MADE A DIFFEREN CE. WILL LIKELY NEED PULM EVAL FOR IF NOT THIS MUMTAZ F/U.; RECORDED 02/09/20 12 3:07PM BY ELENA FORREST MA, CHILOATI ON/JONAH Deshpande MD [address] [facility] [address], [place], [address], [facility] 6 16:29:14 Angina pectoris 361696348 Completed 201210/29/2013 RECORDED 10/20/19 13 9:17AM BY CARI SRIVASTAVA MA, JEOVANY ON/JONAH Deshpande MD [address] [facility] [address], [place], [address], [facility] 6 16:29:14 Tobacco user [id number] Completed 201210/29/2013 RECORDED 10/20/19 13 9:19AM BY CARI SRIVASTAVA MA, JEOVANY ON/JONAH Deshpande MD [address], [place], [address], [facility] 6 16:29:14 Adult health examinat ion Completed 201210/29/2013 IMPRESSI ON: IMMUNIZA TION STATUS UTD WILL SCREEN BASED ON RISK FACTORS. REGULAR DENTAL CARE AND SEATBELT USE ADVISED. DISTRACT ED DRIVING DISCUSSE D.; RECORDED 10/20/19 13 9:19AM BY CARI SRIVASTAVA MA, JEOVANY ON/JONAH Deshpande MD [address], [place], [address], [facility] 6 16:29:14 Angina pectoris 212080831 Completed 201210/02/2013 RECORDED 10/20/19 13 9:17AM BY CARI SRIVASTAVA MA, JEOVANY ON/JONAH Deshpande MD [address], [place], [address], [facility] 6 16:29:14 Tobacco user [id number] Completed 201210/02/2013 RECORDED 10/20/19 13 9:19AM BY CARI SRIVASTAVA MA, ANNOTATI ON/JONAH Deshpande MD [address], [place], [address], [facility] 6 16:29:14 History of clinical finding in subject 107118433 Completed 201206/07/2014 RECORDED 10/20/19 13 9:19AM BY CARI SRIVASTAVA MA, ANNOTATI ON/JONAH Deshpande MD [address], [place], [address], [facility] 6 16:29:14 Adult health examinat ion Completed 201210/02/2013 IMPRESSI ON: IMMUNIZA TION STATUS UTD WILL SCREEN BASED ON RISK FACTORS. REGULAR DENTAL CARE AND SEATBELT USE ADVISED. DISTRACT ED DRIVING DISCUSSE D.; RECORDED 10/20/19 13 9:19AM BY CARI SRIVASTAVA MA, JEOVANY ON/JONAH Deshpande MD [address], [place], [address], [facility] 6 16:29:14 Brachial neuritis 86077970 Completed 201210/29/2013 IMPRESSI ON: SINCE SXS FOR SO LONG REFERRAL TO [facility]; RECORDED 02/29/20 13 9:32AM BY NOLAN HERNANDEZ MA, JEOVANY ON/JONAH Deshpande MD [address], [place], [address], [facility] 6 16:29:14 Influenz a vaccine needed [id number] 06 Completed 201210/29/2013 RECORDED 02/29/20 13 9:32AM BY NOLAN HERNANDEZ MA, JEOVANY ON/JONAH Deshpande MD [address], [place], [address], [facility] 6 16:29:14 Brachial neuritis 02581491 Completed 201210/02/2013 IMPRESSI ON: SINCE SXS FOR SO LONG REFERRAL TO [facility]; RECORDED 02/29/20 13 9:32AM BY NOLAN HERNANDEZ MA, JEOVANY ON/JONAH Deshpande MD [address], [place], [address], [facility] 6 16:29:14 Influenz a vaccine needed [id number] 06 Completed 201210/02/2013 RECORDED 02/29/20 13 9:32AM BY NOLAN HERNANDEZ MA, JEOVANY SALGUERO/JONAH Deshpande MD [address], [place], [address], [facility] 6 16:29:14 Follow-u p encounte r Completed 201310/29/2013 STORY: SEE URGENT NOTE AND INFO IN THIS NOTE.; RECORDED 03/28/19 14 10:15AM BY CARI SRIVASTAVA MA, JEOVANY ON/JONAH Deshpande MD [address], [place], [address], [facility] 6 16:29:14 Edelmira sotomayor [id number] Completed 201310/29/2013 RECORDED 03/28/19 14 10:16AM BY CARI SRIVASTAVA MA, JEOVANY ON/JONAH Deshpande MD [address], [place], [address], [facility] 6 16:29:14 Patient status finding [id number] Completed 201310/29/2013 RECORDED 03/28/19 14 10:15AM BY CARI SRIVASTAVA MA, JEOVANY ON/JONAH Deshpande MD [address], [place], [address], [facility] 6 16:29:14 Follow-u p encounte r Completed 201310/02/2013 STORY: SEE URGENT NOTE AND INFO IN THIS NOTE.; RECORDED 03/28/19 14 10:15AM BY CARI SRIVASTAVA MA, JEOVANY ON/JONAH Deshpande MD [address], [place], [address], [facility] 6 16:29:14 Tobacco user [id number] Completed 201306/07/2014 RECORDED 03/28/19 14 10:21AM BY CARI SRIVASTAVA MA, OFFICE VISIT Darren Deshpande MD [address], [place], [address], [facility] 6 16:29:14 Edelmira sotomayor [id number] Completed 201310/02/2013 RECORDED 03/28/19 14 10:16AM BY CARI SRIVASTAVA MA, ANNOTATI ON/ADDEN DUM Darren Deshpande MD [address], [place], [address], [facility] 6 16:29:14 Patient status finding [id number] Completed 201310/02/2013 RECORDED 03/28/19 14 10:15AM BY CARI SRIVASTAVA MA, ANNOTATI ON/ADDEN DUM Darren Deshpande MD [address], [place], [address], [facility] 6 16:29:14 Exposure to organism Completed 201306/07/2014 RECORDED 03/28/19 14 10:19AM BY CARI SRIVASTAVA MA, OFFICE VISIT Darren Deshpande MD [address], [place], [address], [facility] 6 16:29:14 Screenin g for malignan t neoplasm of colon Completed 201306/07/2014 RECORDED 05/09/19 14 3:55PM BY SHANIQUE CORTEZ, HISTORIC AL SUMMARY Darren Deshpande MD [address], [place], [address], [facility] 6 16:29:14 Cellulit is and abscess of upper arm [id number] Completed 201310/29/2013 IMPRESSI ON: APPEARAN CE AND RECURREN CE RAISES SUSPICIO N FOR MRSA. I&D PERFORME D HERE WITH 3CC OF 2% LIDOCAIN E AND A #11 BLADE. COPIOUS PURULENT DRAINAGE EXPRESSE D. DRESSING APPLIED AND LOCAL WOUND CARE DISCUSSE D. CULTURE SENT THIS TIME AND REFER TO SURGERY FOR FURTHER EVALUATI ON/MGMT, BUT I WILL FOLLOW UP ON THIS IF NO URGERNT SURGICAL APPT AVAILABL E.; RECORDED 10/02/19 14 9:31AM BY CARI SRIVASTAVA MA, ANNOTATI ON/ADDEN DUM Darren Deshpande MD [address], [place], [address], [facility] 6 11:21:05 Screenin g for malignan t neoplasm of colon Completed 201310/29/2013 RECORDED 10/02/19 14 9:31AM BY CARI SRIVASTAVA MA, ANNOTATI ON/ADDEN DUM Darren Deshpande MD [address], [place], [address], [facility] 6 16:29:14 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 [id number] Completed 201310/29/2013 RIGHT FOREARM; RECORDED 10/02/19 14 10:30AM BY DARREN Ann MD, ANNOTATI ON/ADDEN DUM Darren Deshpande MD [address], [place], [address], [facility] 6 11:20:51 Patient status finding [id number] Completed 201306/07/2014 RECORDED 10/02/19 14 9:56AM BY CARI SRIVASTAVA MA, OFFICE VISIT Darren Deshpande MD [address], [place], [address], [facility] 6 16:29:14 Exposure to organism Completed 201310/29/2013 RECORDED 10/02/19 14 10:26AM BY DARREN Ann MD, ANNOTATI ON/ADDEN DUM Darren Deshpande MD [address], [place], [address], [facility] 6 16:29:14 Adult health examinat ion Completed 201306/07/2014 IMPRESSI ON: IMMUNIZA TION STATUS UTD WILL SCREEN BASED ON RISK FACTORS. REGULAR DENTAL CARE, SUNSCREE N AND SEATBELT USE ADVISED. DISTRACT ED DRIVING DISCUSSE D. 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 Procedures Surgical History Date Name Laterality Status Provider Name and Address Organization Details Recorded Time 06/28/19 19 radionuclide imaging of perfusion of myocardium under exercise stress completed Darren Deshpande MD [address] [address], [place], [address], [facility] 06/28/2018 10:24:52 04/30/19 14 Colonoscopy completed Cari Srivastava MA [facility] 12/01/2015 10:47:24 01/28/20 12 Removal of anal fissure completed Cari Srivastava MA [facility] 12/01/2015 10:48:30 03/21/19 07 Colonoscopy completed Darren Deshpande MD [address] [address], [place], [address], [facility] 12/01/2015 11:34:21 Imaging Results None recorded. Procedure Notes None recorded. Medical Equipment None Reported. Allergies No known drug allergies Medications Name Sig Start Date Stop Date Status Note LastModified by Organization Details LastModified Time amoxicill in 500 mg caps active Not Available Not Available Not Available ondansetr on hcl 4 mg tabs active Not Available Not Available Not Available zolpidem tartrate 10 mg tabs 11/30 completed Not Available Not Available Not Available omeprazol e 20 mg cpdr 11/30 completed Not Available Not Available Not Available fluticaso ne propionat e 50 mcg/act susp 11/30 completed Not Available Not Available Not Available cyclobenz aprine 10 mg tablet Take 1 tablet twice a day by oral route as needed for 7 days. 10/25 completed Not Available Not Available Not Available atorvasta tin 20 mg tablet active Not Available Not Available Not Available diphenhyd ramine 50 mg capsule AT BEDTIME PRN 07/09 completed RECORDED 07/26/19 13 3:12PM BY DARREN Ann MD, MEDICATI ON AUTO-DONNY CTIVATIO N; Not Available Not Available Not Available gabapenti n 400 mg capsule active Not Available Not Available Not Available sertralin e 100 mg tablet active Not Available Not Available Not Available atenolol 25 mg tablet active Not Available Not Available Not Available sulfameth oxazole 800 mg-trimet hoprim 160 mg tablet TWO TIMES DAILY 04/04 completed RECORDED 04/10/19 14 12:48PM BY DARREN Ann MD, MEDICATI ON AUTO-DONNY CTIVATIO N; Not Available Not Available Not Available lovastati n 10 mg tablet AT BEDTIME 10/19 completed RECORDED 10/20/19 13 9:22AM BY CARI SRIVASTAVA MA, OFFICE VISIT; Not Available Not Available Not Available sildenafi l 100 mg tablet DAILY NEEDED 10/19 completed RECORDED 10/20/19 13 10:07AM BY DARREN Ann MD, OFFICE VISIT; Not Available Not Available Not Available bupropion HCl SR 100 mg tablet,12 hr sustained -release active Not Available Not Available Not Available carvedilo l 3.125 mg tablet TWO TIMES DAILY 10/01 completed RECORDED 10/02/19 14 9:53AM BY CARI SRIVASTAVA MA, OFFICE VISIT; Not Available Not Available Not Available trazodone 100 mg tablet active Not Available Not Available Not Available simvastat in 20 mg tablet AT BEDTIME 10/01 completed RECORDED 10/02/19 14 9:53AM BY CARI SRIVASTAVA MA, OFFICE VISIT; Not Available Not Available Not Available sertralin e 25 mg tablet active Not Available Not Available Not Available omeprazol e 20 mg capsule,d elayed release active Not Available Not Available Not Available pravastat in 20 mg tablet active Not Available Not Available Not Available lisinopri l 5 mg tablet Take 1 tablet every day by oral route for 30 days. active Not Available Not Available No t Available doxylamin e succinate 25 mg tablet EVERY NIGHT active RECORDED 10/02/19 14 10:24AM BY DARREN Ann MD, ANNOTATI ON/ADDEN DUM; Not Available Not Available Not Available Tylenol-C odeine #3 300 mg-30 mg tablet THREE TIMES DAILY, NEEDED 03/11 completed RECORDED 03/26/19 14 3:07PM BY BREANN LOYA MD, MEDICATI ON AUTO-DONNY CTIVATIO N; Not Available Not Available Not Available zolpidem 10 mg tablet active Not Available Not Available Not Available fluticaso ne propionat e 50 mcg/actua tion nasal spray,diallo pension USE TWO SPRAY(S) IN EACH NOSTRIL ONCE DAILY NEEDED active Not Available Not Available No t Available sertralin e 50 mg tablet active Not Available Not Available Not Available ipratropi um bromide 21 mcg (0.03 %) nasal spray active Not Available Not Available Not Available loratadin e 10 mg tablet DAILY 06/09 completed RECORDED 06/10/19 13 10:14AM BY CARI SRIVASTAVA MA, OFFICE VISIT; Not Available Not Available Not Available amoxicill in 875 mg-potass ium clavulana te 125 mg tablet active Not Available Not Available Not Available tadalafil 20 mg tablet QD NEEDED 11/30 completed RECORDED 10/02/19 14 9:52AM BY CARI SRIVASTAVA MA, OFFICE VISIT; Not Available Not Available Not Available gabapenti n 300 mg tablet TWO TIMES DAILY active Not Available Not Available No t Available omeprazol e DAILY 02/26 completed RECORDED 03/22/19 13 10:08PM BY DARREN Ann MD, MEDICATI ON AUTO-DONNY CTIVATIO N; Not Available Not Available Not Available Aspirin EC DAILY 2012 active Not Available Not Available Not Avai lable trazodone take 1 tab po at bedtime 10 mg tab 11/30 completed Not Available Not Available Not Available Aid To Sleep DAILY active RECORDED 06/10/19 13 12:56PM BY DARERN Ann MD, ANNOTATI ON/ADDEN DUM; Not Available Not Available Not Available Flovent Diskus TWO TIMES DAILY 02/10 completed RECORDED 02/22/20 12 7:13AM BY DARREN Ann MD, MEDICATI ON AUTO-DONNY CTIVATIO N; Not Available Not Available Not Available cholecalc iferol (vitamin D3) 50 mcg (2,000 unit) capsule DAILY 2013 active Not Available Not Available Not Avai lable Vitals Date Recorded Body weight Heart rate Body height Oxygen saturation Oxygen saturation in Arterial blood by Pulse oximetry Body mass index (BMI) Body temperature Systolic And Diastolic Provider Name and Address Organization Details Last Updated DateTime 6 62608.8 75424 g 69 /min 165.1 cm 98 % 98 % 36.5 kg/m2 97.8 [degF] 118/74 mm[Hg] Sincere Mejía [facility] 6 15:41:03 Date Recorded Body temperature Body height Body mass index (BMI) Body weight Oxygen saturation Oxygen saturation in Arterial blood by Pulse oximetry Heart rate Systolic And Diastolic Provider Name and Address Organization Details Last Updated DateTime 5 97.6 [degF] 165.1 cm 34.8 kg/m2 47406.8 0533 g 98 % 98 % 66 /min 110/73 mm[Hg] Cari Srivastava MA [facility] [place] 5 14:50:08 Date Recorded Body height Body weight Body mass index (BMI) Heart rate Oxygen saturation Oxygen saturation in Arterial blood by Pulse oximetry Body temperature Systolic And Diastolic Provider Name and Address Organization Details Last Updated DateTime 6 165.1 cm 95007.2 5 g 33.8 kg/m2 68 /min 98 % 98 % 98.7 [degF] 142/88 mm[Hg] Cari Srivastava MA [facility] 6 10:57:20 Social History Question Answer Notes LastModified by Organizat ion Details LastModified Time Tobacco Smoking Status Former Smoker Not Available [facility] 01/22/2020 03:36:37 Do You Have An Advance Directive? No [id number] Information not available 01/22/2020 Is Blood Transfusion Acceptable In An Emergency? Yes [id number] Information not available 01/22/2020 What Is Your Level Of Caffeine Consumption? Moderate [id number] Information not available 01/22/2020 What Type Of Diet Are You Following? REGULAR [id number] Information not available 01/22/2020 Which Illicit Or Recreational Drugs Have You Used? History Of Marijuanna [id number] Information not available 01/22/2020 Live Alone Or With Others? With Others -Jose madrid And Dtr-Juan gaxiola Information not available 12/01/2015 Do You Take Precautions To Prevent Distracted Driving? Yes Information not available 12/01/2015 How Often Do You Need To Have Someone Help You When You Read Instructions, Pamphlets, Or Other Written Material From Your Doctor Or Pharmacy? Sometimes Information not available 12/01/2015 Have You Served In The ? No Information not available 12/01/2015 How Many Children Do You Have? 2 [id number] Information not available 01/22/2020 Seat Belts Used Routinely Yes Information not available 12/01/2015 Smoke Alarm In Home Yes Information not available 12/01/2015 At What Age Did You Start Smoking Tobacco? 12 [id number] Information not available 01/22/2020 Are You Passively Exposed To Smoke? No Information not available 12/01/2015 Do You Use Sunscreen Routinely? Yes [id number] Information not available 01/22/2020 Sex: Unknown Functional Status Question Answer Note LastModified by Organizat ion Details LastModified Time What is your level of alcohol consumption? Occasional [id number] Information not available 01/22/2020 Are you currently employed? No [id number] Information not available 01/22/2020 Are you able to care for yourself? Yes [id number] Information not available 01/22/2020 What is your occupation? disabled/Chris [id number] Information not available 01/22/2020 What is your exercise level? Moderate [id number] Information not available 01/22/2020 Mental Status None recorded. Family History Relationship Description Onset Age of this Age Resolved Age Notes LastModified by Organization Details LastModified Time Mother Depressive disorder abolcun Not available 2015 10:46:13 Mother Asthma abolcun Not available 10:46:24 Father Diabetes mellitus abolcun Not available 2015 10:46:38 Father Acute hepatitis awychowski Not available 11/30 11:27:16 Daughter Well adult awychowski Not angelica ilable 12/01/2015 11:26:39 Daughter Well adult awychowski Not angelica ilable 12/01/2015 11:26:39 Sister Well adult awychowski Not avail able 12/01/2015 11:27:28 Sister Well adult awychowski Not avail able 12/01/2015 11:27:32 Sister Well adult awychowski Not avail able 12/01/2015 11:27:36 Brother Diabetes mellitus awychowski Not available 11/30 11:27:42 Medical History Condition Response Coronary Artery Disease Y Hypertension Y High Cholesterol Y Immunizations Vaccine Type Date Status Note Provider Nam e and Address Organization Details Recorded Time influenza, seasonal, intradermal, preservative free 2 completed Not Available [facility] 10/02/2013 13:49:09 Hep A, adult 0 completed Not Available [facility] 10/02/2013 13:49:09 Hep A, adult 0 completed Not Available [facility] 10/02/2013 13:49:09 Td (adult), 2 Lf tetanus toxoid, preservative free, adsorbed 5 completed Not Available [facility] 10/02/2013 13:49:09 Tdap 1 completed Not Available [facility] 10/02/2013 13:49:09 influenza, seasonal, intradermal, preservative free 3 completed Not Available [facility] 10/02/2013 13:49:09 Past Encounters Encounter ID Performer Location Encounter Start Date Encounter Closed Date Diagnosis/Indication Diagnosis SNOMED-CT Code Diagnosis ICD10 Code Diagnosis Note [id number] [facility] [address] [place] [address] 01/28/2012 00:00:00 [id number] [facility] [address] [facility],[address] [place], [place] [address] 06/09/2012 00:00:00 [id number] [facility] [address] [place] [address] 10/19/2012 00:00:00 [id number] [facility] [address] [facility],[address] [place] [address] 02/12/2013 00:00:00 [id number] [facility] [address] [facility],[address] [place] [address] 03/01/2013 00:00:00 [id number] [facility] [address] [facility],[address] [place] [address] 03/28/2013 00:00:00 [id number] [facility] [address] [facility],[address] [place] [address] 10/01/2013 00:00:00 [id number] Darren Deshpande MD Main Office [address] [place] [address] 06/07/2014 14:37:59 06/07/2014 15:30:10 Pain in testicle 21637395 Will image to rule out hernia vs testicular abnormalit y. Insomnia 116227525 OTC treatment options advised as well as sleep hygeine. Essential hypertension 10402096 Well controlled . Continue current regimen. [id number] JIA Real Main Office [address] [place] [address] 04/16/2015 15:27:36 04/16/2015 16:28:15 Palpitations 90679439 R00.2 Seen at and Holter monitor was enoch azul Will place holter today and have patient return it tomorrow. Per note he had CBC and TSH done but no results in system and patient does not recall having any blood work at , I will add this on today, will also get CXR. Avoid any trigger foods/ activities , stay well hydrated, eat welll balanced meals. If CXR, labs and holter negative may need cardiolgy consult or stress test. [id number] Darren Deshpande MD Main Office [address] [facility] [address] [facility] [place] [address] 12/01/2015 09:57:47 12/01/2015 11:57:27 Adult health examination 300055790 Z00.01 Immunizati on status utd. Will screen based on risk factors. Regular dental and ophtho care advised as well as seat belt and sunscreen use. Distracted driving discussed. Advance directives discussed and HCP form provided. Body mass index 30+ - obesity 092264006 Z68.30 Essential hypertension 14147918 I10 Has been without meds. Will resume and reassess. Palpitations 07594793 R0 0.2 Persistent issue with normal holter but cardiac history and risk factors for AF (ie MUMTAZ). Will arrange cardiology follow up to help address this as well as his hx of vascular disease. Pure hypercholesterolemia 843936158 E78.0 Off of meds. Will reassess and most likely try a different statin. Psychosexu al dysfunction 549545338 F52.9 Health Concerns Section Related Observation LastModified by Organization Detai ls LastModified Time None Recorded Concern Status LastModified by Organization Details LastModified Time None Recorded Advance Directives Directive N: Payers Insurance Date Sequence Insurance Name Policy Number Policy Holly Covered Member ID Holly Member ID Guarantor Name 02/23/[address] [place] [address] ([facility]) [id number] Mitali Soto [id number] Reji Dowell Notes Date Note Type Note Provider Name and Address Organization Details Recorded Time 04/16/2015 text/html Hospitalization Contact RecordReported bypatient.Notes:49-yea r-old with a history of TN about 1 year ago presents with intermittent palpitations since . Reports no associated chest pain or radiation. EKG Q-wave in 2, 3 and aVF evidence of old inferior infarct. No ST elevation or depression. Nonspecific T-wave abnormality in 3 and aVF. Will obtain TSH with reflex T4 and CBC. Given the persistence of these palpitations, I feel it is appropriate to get a Holter monitor to further elucidate the cause. Discussed with patient contacting PCP for follow-up as I cannot prescribe a Holter monitor from urgent care. I discussed with the patient that the PCP may ask him to come in for an evaluation in his office before prescribing a Holter monitor. [employer] outreach call to patient left message on voicemail to contact PCP office regarding ED / Urgent Care visit and to schedule follow up with PCP. At this time patient has no future visit. Patient presents in follow-up, palpitations have decreased since UC visit but not has a sensation of not able to take a deep breath at times, feels like something in his chest that he cant cough up. It was also recommended that he have a holter monitor placed. He feels he gets fluttering in his chest and then has to take a deep breath but at times feels he cant catch his breath regardless of palpitations. He denies dyspnea or worsening sx on exertion. Darren Deshpande MD [address] [address], [place], [address], [facility] [place] 04/17/2015 08:22:51 12/01/2015 text/html Generic HPI TemplateReported bypatient.Notes:Here for a physical. Feels well. Seeing dentist and ophtho regularly. Darren Deshpande MD [address], [address], [facility] [place] 12/02/2015 11:00:11
--- OUTSIDE RECORDS SUMMARY | 2024-10-05 08:42 | XMS_ITS | Patient Health Record ---
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 Name Role Phone Chaz Sol MD Primary Care Provider Roberto Patino [phone] Allergies No Known Allergies Results Component Value Reference Range Notes Prothrombin Time INR Reviewed date:08/16/2024 11:56:02 AM Interpretation: Performing Lab:[facility], [address] [place] [phone] Notes/Report: Prothrombin Time 10.6 10.9-12.4 SEC INTERNATIONAL NORM RATIO 0.9 0.9-1.1 INTERNATIONAL NORMALIZED RATIO (INR) REFERENCE RANGES Reference Range For patients not on anticoagulant therapy: 0.9 - 1.1 INR ranges for oral anticoagulant therapy: For prevention and treatment of venous thrombosis and pulmonary embolism: 2.0 - 3.0 For acute myocardial infarction with aspirin therapy: 2.0 - 3.0 For acute myocardial infarction without aspirin therapy: 3.0 - 4.0 For patients with mechanical prosthetic heart valves: 2.5 - 3.5 Complete Blood Count Auto Di ff Reviewed date:08/16/2024 11:55:38 AM Interpretation: Performing Lab:[facility], [address] [place] [phone] Notes/Report: White Blood Count 10.5 4.8-10.8 X10*3/uL Red Blood Count 5.29 4.60-5.80 X10*6/uL Hemoglobin 15.2 14.0-18.0 g/dl Hematocrit 46.5 42.0-52.0 % Mean Corpuscular Volume 87.9 80.0-98.0 fL Mean Corpuscular Hemoglobin 28.7 27.0-33.0 pg Mean Corpuscular HGB Conc 32.7 31.0-36.0 g/dl Red Cell Distribution Width 13.1 11.0-16.0 % Platelet Count 207 160-400 X10*3/uL Mean Platelet Volume 9.5 9.4-12.4 fL Neutrophils Percent Auto 60.2 45-73 % Imm Gran Pct Auto 0.7 0.0-0.4 % Lymphocytes Percent Auto 24.7 20-40 % Monocytes Percent Auto 8.2 2-11 % Eosinophils Percent Auto 5.4 0-4 % Basophils Percent Auto 0.8 0-2 % NRBC Pct Auto 0.0 0.0-0.2 /100WBC Neutrophils Absolute Auto 6.3 2.0-8.3 x10*3/u L Imm Gran Abs Auto 0.07 0.00-0.03 X10*3/uL Lymphocytes Absolute Auto 2.6 1.2-4.9 X10*3/u L Monocytes Absolute Auto 0.9 0.1-1.2 X10*3/uL Eosinophils Absolute Auto 0.6 0.0-0.4 X10*3/u L Basophils Absolute Auto 0.1 0.0-0.2 X10*3/uL NRBC Abs Auto 0.000 0.0-0.012 X10*3/uL Liver Panel Reviewed date:08/16/2024 11:55:11 AM Interpretation: Performing Lab:[address] [phone] Notes/Report: Bilirubin Total 0.6 0.0-1.0 mg/dL Bilirubin Direct 0.3 0.0-0.5 mg/dL Aspartate Amino Transferase 35 5-37 U/L Alanine Aminotransferase 60 0-40 U/L Total Protein 7.4 6.5-8.0 g/dL Albumin Level 4.4 3.5-5.0 g/dL Alkaline Phosphatase 68 39-117 U/L Alpha Fetoprotein Reviewed date:09/13/2024 03:32:51 PM Interpretation: Performing Lab:[address] [phone] Notes/Report: Alpha Fetoprotein 2.5 <6.1 ng/mL This test was performed using the Milady Olivia chemiluminescent method. Values obtained from different assay methods cannot be used interchangeably. AFP levels, regardless of value, should not be interpreted as absolute evidence of the presence or absence of disease. THIS TEST WAS PERFORMED AT: [email or web address] [address] [place] [phone] ROLAND VALENZUELA MD Liver Fibrosis Pnl Reviewed date:09/13/2024 03:32:45 PM Interpretation: Performing Lab:[facility], [address] [place] [phone] Notes/Report: Liver Fibrosis Score 0.37 Liver Fibrosis Stage F1-F2 Liver Fibrosis Interpretation SEE NOTE minimal fibrosis Fibro Test Score (f) Metavir Score f>=0 and f<=0.21 : F0 (no fibrosis) f>0.21 and f<=0.27 : F0-F1 (no fibrosis) f>0.27 and f<=0.31 : F1 (minimal fibrosis) f>0.31 and f<=0.48 : F1-F2 (minimal fibrosis) f>0.48 and f<=0.58 : F2 (moderate fibrosis) f>0.58 and f<=0.72 : F3 (advanced fibrosis) f>0.72 and f<=0.74 : F3-F4 (advanced fibrosis) f>0.74 and f<=1.00 : F4 (severe fibrosis) Nec Inflam Act Score 0.25 Nec Inflam Act Grade A0-A1 Nec Inflam Act Interpretation SEE NOTE no activity ActiTest Score (a) Metavir Score a>=0 and a<=0.17 : A0 (no activity) a>0.17 and a<=0.29 : A0-A1 (no activity) a>0.29 and a<=0.36 : A1 (minimal activity) a>0.36 and a<=0.52 : A1-A2 (minimal activity) a>0.52 and a<=0.60 : A2 (significant activity) a>0.60 and a<=0.62 : A2-A3 (significant activity) a>0.62 and a<=1.00 : A3 (severe activity) PCB-Syquc-1-Macroglobulin 328 106-279 mg/dL FIB-Haptoglobin 174 43-212 mg/dL FIB-Apolipoprotein A1 159 94-176 mg/dL FIB-Total Bilirubin 0.4 0.2-1.2 mg/dL FIB-GGT 30 3-85 U/L FIB-ALT 42 9-46 U/L Reference ID [id number] Footnote SEE NOTE The reliability of results is dependent on compliance with the preanalytical and analytical conditions recommended by [employer]. The tests have to be deferred for: acute hemolysis, acute hepatitis, acute inflammation, extra hepatic cholestasis. The advice of a specialist should be sought for interpretation in chronic hemolysis and Gilbert's syndrome. The test interpretation is not validated in liver transplant patients. Isolated extreme values of one of the components should lead to caution in interpreting the results. In case of discordance between a biopsy result and a test, it is recommended to seek the advice of a specialist. The causes of these discordances could be due to a flaw of the test or to a flaw in the biopsy: i.e. a liver biopsy has a 33% variability rate for one fibrosis stage. FibroTest is interpretable for chronic hepatitis B and C, alcoholic and non alcoholic steatosis. ActiTest is interpretable for chronic hepatitis B and C. The performance characteristics have been determined by [facility]. It has not been cleared or approved by the U.S. Food and Drug Administration. Performance characteristics refer to the analytical performance of the test. [employer], [employer], the associated logo, [employer] and all associated [employer] farrar are the registered trademarks of [employer]. All third libertarian farrar - (R) and (TM) - are the property of their respective owners. (C) [id number] [employer]. All rights reserved. THIS TEST WAS PERFORMED AT: [facility] [address] [place] [address] SPENCER HAYES MD,PHD,KEERTHI Hep C Viral Load Reviewed date:08/19/2024 06:48:07 PM Interpretation: Performing Lab:[facility], [address] [place] [phone] Notes/Report: HepC Viral Load <15 NOT DETECTED NOT DETECTED IU/mL HCV Log PCR <1.18 NOT DETECTED NOT DETECTED Log IU/mL For additional information, please refer to http://education.Remicalm/faq/FAQ22v 1 (This link is being provided for informational/ educational purposes only.) THIS TEST WAS PERFORMED AT: [email or web address] [address] [place] [phone] ROLAND VALENZUELA MD Reason For Referral No Information Medications Medication SIG (Take, Route, Frequency, Duration) Notes Start Date End Date Status Ibuprofen 600 MG TAKE 1 TAB BY MOUTH EVERY 8 HOURS NEEDED FOR PAIN Oral for 10 Active Fluticasone Propionate 50 MCG/ACT USE 1 SPRAY(S) IN EACH NOSTRIL TWICE DAILY Nasal for 30 Active Trulicity 1.5 MG/0.5ML as directed Subcutaneous Active Flovent Diskus 100 MCG/BLIST INHALE 1 PUFF BY MOUTH TWICE DAILY RINSE MOUTH AND THROAT AFTER USE Inhalation for 30 Active Omeprazole 40 MG TAKE 1 TABLET BY CHARLEE TH EVERY DAY Oral Once a day for 30 days Active Omeprazole 40 MG TAKE 1 CAP ORALLY EV WILBERT MORNING 30 DAY(S) Active Atenolol 25 MG TAKE 1 2 (ONE HALF) TABLET BY MOUTH ONCE DAILY Oral for 90 Active Aspir-81 81 MG 1 tablet Orally Once a day Active Atorvastatin Calcium 40 MG Oral for 30 Days Active Gabapentin 600 MG 1 tablet Orally prn Active Ipratropium Sunnyside 0.03 % USE 1 SPRAY(S) IN EACH NOSTRIL TWICE DAILY NEEDED FOR NASAL CONGESTION Nasal for 30 Active clonazePAM 0.5 MG (Schedule IV Drug) T NATHAN 1/2 TABLET BY MOUTH DAILY INS ONLY ALLOWS 30DS Oral for 30 Active Sleep Aid 1 tablet at bedtime as needed Orally Once a day Active traZODone HCl 100 MG Oral for 30 Days Active busPIRone HCl 5 MG TAKE 1 TABLET BY CHARLEE TH TWICE A DAY Oral for 30 Active Dicyclomine HCl 10 MG 1 or 2 capsules Or ally Every 6 hours as needed for abdominal discomfort/cramps/bloati ng for 30 day(s) 03/29/2023 Not-Taking Simvastatin 10 MG 1 tablet in the even ing Orally Once a day Not-Taking traZODone HCl 100 MG TAKE 2 TABLET BY MO UTH DAILY AT BEDTIME, NEEDED INSOMNIA Oral for 30 Active Albuterol Sulfate HFA 108 (90 Base) MCG/ACT TAKE 2 PUFFS INHALATION EVERY 6 HOURS Inhalation for 25 Active Immunizations Vaccine Route Administration Date Status Comme nts Influenza Unknown 02/07/2023 Administered Influenza Unknown 03/27/2020 Refused Social History Alcohol Screen Question Answer Notes Did you have a drink containing alcohol in the p ast year? No Points 0 Interpretation Negative Section Notes: Smokes occasional marijuana; drinks alcohol only occasionally Smokes occasional marijuana; drinks alcohol only occasionally Smokes occasional marijuana; drinks alcohol only occasionally Smokes occasional marijuana; drinks alcohol only occasionally Takes CBD/THC drops for pain QD; nonsmoker; drinks alcohol only occasionally Takes CBD/THC drops for pain QD; nonsmoker; drinks alcohol only occasionally Takes CBD/THC drops for pain QD; nonsmoker; drinks alcohol only occasionally Takes CBD/THC drops for pain QD; nonsmoker; drinks alcohol only occasionally, but heavier when he is on vacation Takes CBD/THC drops for pain QD; nonsmoker; drinks alcohol only occasionally, but heavier when he is on vacation Problems Problem Type SNOMED Code ICD Code Onset Dates Problem Status W/U Status Risk Notes Problem 345477120 Colon cancer screening (Z12.11) Active confirmed Problem Esophageal reflux (182922955) Esophageal reflux (K21.9) Active confirmed Problem 53966145 Calculus of gallbladder without cholecystitis without obstruction (K80.20) Active confirmed Problem Duodenitis (40551027) Duodenitis (K29.80) Active confirmed Problem 318153916 Chronic hepatiti s C without hepatic coma (B18.2) Active confirmed Problem 036573239 Chronic hepatiti s C (B18.2) Active confirmed Problem 283235048 Abdominal pain, left upper quadrant (R10.12) Active confirmed Problem Gastroesophageal reflux disease (385942497) GERD (gastroesophageal reflux disease) (K21.9) Active confirmed Problem 2723770 Racing heart valerie t (R00.0) Active confirmed Problem History of hepatitis C (63026014283153) History of hepatitis C (Z86.19) Active confirmed Problem [id number] Erosive gastrit is (K29.60) Active confirmed Problem Left lower quadrant pain (451995978) Abdominal pain, acute, left lower quadrant (R10.32) Active confirmed Problem Diverticulosis of colon (138100214) Diverticulosis of colon (K57.30) Active confirmed Problem 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 [place] [address] 08/16/2024 Roberto Escalante History of hepatitis C Z86.19 ; Mayo''s esophagus without dysplasia K22.70 ; GERD (gastroesophageal reflux disease) K21.9 ; Colon cancer screening Z12.11 and Calculus of gallbladder without cholecystitis without obstruction K80.20 Assessments Encounter Date Diagnosis (ICD Code) Assessment Notes Treatment Notes Treatment Clinical Notes Section Notes 08/16/2024 History of hepatitis C (ICD-10 - Z86.19) Try to watch weight, eat healthy, keep diabetes well controlled, and avoid alcohol to jeep the liver healthy and avoid fatty liver Overall, Pedro appears well. He does not show any signs nor have any symptoms of progressive liver disease. I shall check a follow-up abdominal ultrasound along with laboratories including an alpha-fetoprote in level and liver fibrosis score. I did advise him to be sure to have the lab work done this time. I did review with him his risk factors for fatty liver and liver damage on that basis including that of his weight and his diabetes. I did advise him to try to lose weight, watch his diet carefully, control his diabetes as best as possible, and to avoid alcohol to minimize any risk factors for fatty liver and liver damage on that basis. I did advise him to continue his omeprazole as needed and we will plan to schedule him for a follow-up surveillance upper endoscopy in 1 year when I see him in follow-up in regard to the Mayo's esophagus. We did review his history of gallstones and the need to seek surgical consultation if he begins having persistent right upper quadrant pain. We did review that he will be due for a follow-up screening colonoscopy in 2032. I did advise Pedro to call me prior to his appointment next year if he has any problems or questions I can be of assistance with. He was very comfortable with this plan. Thank you again for allowing me to participate in Pedro's care. I shall continue to keep you advised of his progress. 08/16/2024 Mayo''s esophagus without dysplasia (ICD-10 - K22.70) We will schedule a follow up upper endoscopy for the reflux and Mayo's esophaus when I see you in 1 year. Overall, Pedro appears well. He does not show any signs nor have any symptoms of progressive liver disease. I shall check a follow-up abdominal ultrasound along with laboratories including an alpha-fetoprote in level and liver fibrosis score. I did advise him to be sure to have the lab work done this time. I did review with him his risk factors for fatty liver and liver damage on that basis including that of his weight and his diabetes. I did advise him to try to lose weight, watch his diet carefully, control his diabetes as best as possible, and to avoid alcohol to minimize any risk factors for fatty liver and liver damage on that basis. I did advise him to continue his omeprazole as needed and we will plan to schedule him for a follow-up surveillance upper endoscopy in 1 year when I see him in follow-up in regard to the Mayo's esophagus. We did review his history of gallstones and the need to seek surgical consultation if he begins having persistent right upper quadrant pain. We did review that he will be due for a follow-up screening colonoscopy in 2032. I did advise Pedro to call me prior to his appointment next year if he has any problems or questions I can be of assistance with. He was very comfortable with this plan. Thank you again for allowing me to participate in Pedro's care. I shall continue to keep you advised of his progress. 08/16/2024 GERD (gastroesophageal reflux disease) (ICD-10 - K21.9) Overall, Pedro appears well. He does not show any signs nor have any symptoms of progressive liver disease. I shall check a follow-up abdominal ultrasound along with laboratories including an alpha-fetoprote in level and liver fibrosis score. I did advise him to be sure to have the lab work done this time. I did review with him his risk factors for fatty liver and liver damage on that basis including that of his weight and his diabetes. I did advise him to try to lose weight, watch his diet carefully, control his diabetes as best as possible, and to avoid alcohol to minimize any risk factors for fatty liver and liver damage on that basis. I did advise him to continue his omeprazole as needed and we will plan to schedule him for a follow-up surveillance upper endoscopy in 1 year when I see him in follow-up in regard to the Mayo's esophagus. We did review his history of gallstones and the need to seek surgical consultation if he begins having persistent right upper quadrant pain. We did review that he will be due for a follow-up screening colonoscopy in 2032. I did advise Pedro to call me prior to his appointment next year if he has any problems or questions I can be of assistance with. He was very comfortable with this plan. Thank you again for allowing me to participate in Terrells care. I shall continue to keep you advised of his progress. 08/16/2024 Colon cancer screening (ICD-10 - Z12.11) Repeat colonoscopy in 2032 Overall, Pedro appears well. He does not show any signs nor have any symptoms of progressive liver disease. I shall check a follow-up abdominal ultrasound along with laboratories including an alpha-fetoprote in level and liver fibrosis score. I did advise him to be sure to have the lab work done this time. I did review with him his risk factors for fatty liver and liver damage on that basis including that of his weight and his diabetes. I did advise him to try to lose weight, watch his diet carefully, control his diabetes as best as possible, and to avoid alcohol to minimize any risk factors for fatty liver and liver damage on that basis. I did advise him to continue his omeprazole as needed and we will plan to schedule him for a follow-up surveillance upper endoscopy in 1 year when I see him in follow-up in regard to the Mayo's esophagus. We did review his history of gallstones and the need to seek surgical consultation if he begins having persistent right upper quadrant pain. We did review that he will be due for a follow-up screening colonoscopy in 2032. I did advise Pedro to call me prior to his appointment next year if he has any problems or questions I can be of assistance with. He was very comfortable with this plan. Thank you again for allowing me to participate in [facility] care. I shall continue to keep you advised of his progress. 08/16/2024 Calculus of gallbladder without cholecystitis without obstruction (ICD-10 - K80.20) Overall, Pedro appears well. He does not show any signs nor have any symptoms of progressive liver disease. I shall check a follow-up abdominal ultrasound along with laboratories including an alpha-fetoprote in level and liver fibrosis score. I did advise him to be sure to have the lab work done this time. I did review with him his risk factors for fatty liver and liver damage on that basis including that of his weight and his diabetes. I did advise him to try to lose weight, watch his diet carefully, control his diabetes as best as possible, and to avoid alcohol to minimize any risk factors for fatty liver and liver damage on that basis. I did advise him to continue his omeprazole as needed and we will plan to schedule him for a follow-up surveillance upper endoscopy in 1 year when I see him in follow-up in regard to the Mayo's esophagus. We did review his history of gallstones and the need to seek surgical consultation if he begins having persistent right upper quadrant pain. We did review that he will be due for a follow-up screening colonoscopy in 2032. I did advise Pedro to call me prior to his appointment next year if he has any problems or questions I can be of assistance with. He was very comfortable with this plan. Thank you again for allowing me to participate in Pedro's care. I shall continue to keep you advised of his progress. Plan Of Treatment Pending Test Test Name Order Date CHEM 7 PROFILE 02/28/2015 LIVER PROFILE 03/08/2015 LIVER PROFILE 06/17/2022 LIVER PROFILE 08/12/2015 LIVER PROFILE 02/02/2015 LIVER PROFILE 08/16/2024 LIVER PROFILE 02/28/2015 LIVER PROFILE 03/27/2020 LIVER PROFILE 12/31/2014 LIVER PROFILE 04/28/2015 LIVER PROFILE 02/18/2015 LIVER PROFILE 08/16/2023 T4 (THYROXINE) 02/28/2015 TSH (THYROID STIMULATING HORMONE) 2014 CBC w DIFF 03/08/2015 CBC w DIFF 06/17/2022 CBC w DIFF 08/12/2015 CBC w DIFF 02/02/2015 CBC w DIFF 08/16/2024 CBC w DIFF 03/27/2020 CBC w DIFF 12/31/2014 CBC w DIFF 02/18/2015 CBC w DIFF 08/16/2023 CBC w DIFF 02/28/2015 PROTHROMBIN TIME (PT, INR) 06/17/2022 ALPHA-FETOPROTEIN,TUMOR MARKER 4 ALPHA-FETOPROTEIN,TUMOR MARKER 6 ALPHA-FETOPROTEIN,TUMOR MARKER 5 ALPHA-FETOPROTEIN,TUMOR MARKER 3 HEPATITIS C VIRAL LOAD 06/17/2022 HEPATITIS C VIRAL LOAD 08/16/2023 HEPATITIS C VIRAL LOAD 03/27/2020 HEPATITIS C VIRAL LOAD 04/28/2015 HEPATITIS C VIRAL LOAD 08/12/2015 HEPATITIS C VIRAL LOAD 08/16/2024 HEPATITIS C VIRAL LOAD 12/31/2014 US ABD 08/12/2015 US ABD 03/27/2020 HCV LIVER FIBROSIS, FIBRO TEST 5 HCV LIVER FIBROSIS, FIBRO TEST 3 HCV LIVER FIBROSIS, FIBRO TEST 4 US ABDOMEN COMP WITH ELASTOGRAPHY 2022 Prothrombin Time INR 08/16/2023 US abdomen comp w elastography 4 US abdomen comp w elastography 5 US abdomen comp w elastography 4 Future Test Test Name Order Date COLONOSCOPY 01/09/2013 UPPER GI ENDOSCOPY 03/27/2020 UPPER GI ENDOSCOPY 06/17/2022 COLONOSCOPY 06/17/2022 Next Appt Details Provider Name:Roberto Escalante , 08/15/2025 09:00:00 AM, [address] [facility], [address], [place], [address], Insurance Providers Payer Name Payer Address Payer Phone Subscriber Number Group Number Insured Name Patient Relationship to Insured Coverage Start Date Coverage End Date [facility] [address] [place] [phone] [id number] PEDRO COE Self - patient is the insured Medical (General) History Medical History History ICD Code Negative colonoscopy in 2006 other than internal hemorrhoids-done by Dr. Merrill Hepatitis C-Genotype 1a--he has had liver biopsies in 1991 and 1997 showing a mild hepatitis, but no fibrosis-he was treated with 6 months of non-pegylated interferon 3 times a week and ribavirin in the late without any sustained response. He had a liver ultrasound in 2012 describing a small liver cyst and some evidence of probable fatty liver and/or hepatocellular disease--there was no evidence of any signs of cirrhosis nor portal hypertension. He finished 12 weeks of the Viekira danny and ribavirin toward the end of March,--his hepatitis C viral load was nondetectable and the liver profile was normal on 06/02/15; Hep C neg. in 03/2020 GERD --Upper Endoscocpy 04-13 with the finding of some gastroesophageal reflux, but no Mayo's esophagus TN 02/2011--did not have a cardiac cath Denies DM,CVA,Lung disease,renal disease Colonoscopy in 04/2013 with a nonspecific colitis--he had been on NSAID's and antibiotics--no specific Rx given--also internal hemorrhoids; no polyps TN in 2015 HTN Cardiac cath in 2019--no stents ne eded EGD 03/2020 with erosive gastritis, small hiatal hernia--bx neg for H.pylori Gallstones seen on U/S in 2020-reviewed at the 07/02/20 and the 06/17/22 office visits--no symptoms presently EGD 07/2022 with a small hiat al hernia and a small area of Mayo's esophagus--no dysplasia; there was no esophagitis; gastric biopsies neg for H.pylori Negative screening colonoscopy in 07/2022 Surgical History Surgery Date(Month/Year) Achilles tendon -Dr. De La Garza right repla rosa 3 yrs ago Rectal fissure Testicular torsion
== END 2024-10-05 08:40 | disposition home or self-care (01) ==
LOC: HO.US 08:39
PROVIDERS: PCP Internal Medicine; Visit Provider Internal Medicine
DX: Z86.19 Personal history of other infectious and parasitic diseases (principal)
CPT/HCPCS: 76700; 76981

== ENCOUNTER → 2024-10-05 09:00 | Outpatient (BNV) | payer OTHER, SELFPAY | PROVIDERS: PCP Internal Medicine; Visit Provider Radiology Diagnostic Radiology | DX: K76.0 Fatty (change of) liver, not elsewhere classified (principal) | CPT/HCPCS: 76700 ==